=== PATIENT | female | born 1970 | race Caucasian/White ===

== ENCOUNTER → 2020-08-26 08:21 | Outpatient (CLI) | payer BC, SELFPAY ==
[2020-08-25 15:15] VITALS: BMI 30.5
--- NOTE | 2020-08-25 15:45 | FLU_PTH ---
PATIENT: REBECCA CAMPBELL LOC: [facility] #:[id number] AGE/SX: 54/F ROOM: RE08/26/[address]: Dr. Delbert Heaton MD : 1970 BED: DIS: SPEC #: [id number] RECD: 08/26/20 08:04 STATUS: CLEVE SARIKA #: [id number] SHANNAN: 08/25/20 15:[address]: Delbert Heaton DEPT: CYTOLOGY RECD BY: Merced Vines Tissues: A - Thyroid gland, NOS B - Thyroid gland, NOS Procedures: Special Stain Group II Surgery Specimen Level IV Cytospin Fluid HEADER OPERATION: Ultrasound-guided fine needle aspiration of left thyroid PRE-OP DIAGNOSIS: Multiple thyroid nodules E04.2 TISSUE SUBMITTED: A ? Mid pole left thyroid nodule fluid for cytology, B ? Left thyroid slides x10 DIAGNOSIS CYTOLOGY A. Left thyroid mid pole nodule fluid for cytology (cytospin and cell block): Consistent with benign cystic colloid nodule. Adequate for evaluation. See cytology study and comment. B. Left thyroid nodule, ultrasound-guided FNA (smears): Consistent with benign follicular nodule with extensive cystic changes. Adequate for evaluation. See comment. MARSHALL:jose 08/27/2020 COMMENT Correlation with clinical, radiologic findings and appropriate follow up are necessary. CYTOLOGY STUDY Slides are reviewed. A. The specimen predominantly consists of macrophages, small amount of colloid and a few benign follicular cells. Only a few clusters of follicular cells are noted meeting the minimal criteria for adequacy for evaluation. CYTOLOGY GROSS A - Received is 0.5 ml of brown cloudy fluid labeled with the patient's name and and designated per the requisition as left thyroid. Submitted for cytology preparation including cell block. B - Received are 10 smears labeled with the patient's name and designated per the requisition as left thyroid. Submitted for staining. / jose 08/26/2020 TC:5 CPT: 50510, 91802, 33354
== END ==
PROVIDERS: Visit Provider Surgery
DX: E04.2 Nontoxic multinodular goiter (principal)
CPT/HCPCS: 88108; 88305; 88313

== ENCOUNTER → 2021-08-11 | Outpatient (CLI) | payer BC, SELFPAY ==
--- NOTE | 2021-08-11 14:19 | US_ITS ---
STUDY: THYROID ULTRASOUND REASON FOR EXAM: Female, 51 years old. thyroid nodules TECHNIQUE: Ultrasound evaluation of the thyroid was performed with real-time and static narvaez-scale imaging. COMPARISON: None. FINDINGS: RIGHT LOBE: The right lobe of the thyroid gland measures 6.2 x 2.8 cm. There is a heterogeneous echotexture. Multiple nodules. Nodule #1 measures 20 x 18 x 9 mm 2. Measures 15 x 15 x 13 mm. Nodule 3. Measures 22 x 19 x 17 mm. There are multiple other nodules.These are cystic and solid appearance. LEFT LOBE: The left lobe of the thyroid gland measures 7.8 x 2.8 cm. There is a heterogeneous echotexture. There are nodules. Multiple nodules. Nodule #1 measures 21 x 17 x 11 mm. Nodule 2 measures 14 x 9 x 18 mm. nodule 3 measures 21 x 20 x 20 mm. There are multiple other nodules. These are cystic and solid appearance. ISTHMUS: The isthmus measures 3 mm. US/Thyroid IMPRESSION: Multinodular bilateral thyroid gland. There are RIGHT nodules. This nodule is mixed cystic and solid, hyperechoic or isoechoic, [id number], smoothly marginated and contains no echogenic foci. TI-RADS points: 2. TI-RADS category: TR2. This nodule is not suspicious and no FNA or follow-up is necessary. There are left nodules. This nodule is mixed cystic and solid, hyperechoic or isoechoic, [id number], smoothly marginated and contains no echogenic foci. TI-RADS points: 2. TI-RADS category: TR2. This nodule is not suspicious and no FNA or follow-up is necessary. Electronically Signed: Edward Jones MD at 15:06 EDT ,
== END | disposition home or self-care (01) ==
LOC: US 14:17
PROVIDERS: PCP Physician Assistant; Referring Provider Surgery; Visit Provider Surgery
DX: E04.2 Nontoxic multinodular goiter (principal)
CPT/HCPCS: 76536

== ENCOUNTER → 2024-05-31 | Outpatient (CLI) | payer OTHER, SELFPAY ==
--- NOTE | 2024-05-31 17:44 | US_ITS ---
PROCEDURE: THYROID 05/31/2024 REASON FOR EXAM: THYROID NODULES Nodules seen on prior exam of August 11, 2021 TECHNIQUE: Real-time ultrasound evaluation of the thyroid was performed with real-time and static grayscale imaging COMPARISON: Ultrasound thyroid 08/11/2021 PROCEDURE: Right thyroid ultrasound. Previous imaging was reviewed. FINDINGS: The thyroid gland, right lobe, measures 6.0 cm length by 2.7 cm height by 2 point 9 cm wide. The left lobe of the gland measures 6.0 cm by 2.8 cm height by 2.4 cm width. The isthmus is mildly thickened at 4.6 mm. A right thyroid nodule is identified measuring 2.7 cm by 2 point 1 cm height. A right lobe nodule is identified measuring 3.1 cm L x 2.2 cm x 1.8 cm W. the nodule is almost completely solid (2), isoechoic (1), wider than tall (0). Is also smoothly marginated with no echogenic foci (0). A left thyroid nodule is identified measuring 3.1 cm x 2.2 cm x 1.8 cm. Few small cystic areas are seen, but the nodule is predominantly solid (2 points), isoechoic (1), wider than tall (0), smoothly marginated (0) and no echogenic foci (0). The nodule is TR 3, mildly suspicious. FNA biopsy is recommended for all TR 3 nodules greater than or equal to 2.5 cm diameter (maximum diameter). Also in the left lobe is a 2.1 by 1 point 2 x 1.6 cm nodule which is mixed cystic and solid (1 point), isoechoic (1), wider than tall (0), smooth margins (0), no echogenic foci (0). TR 2, not suspicious. A left lobe nodule measures 0.9 cm x 1.2 cm 1.0 cm and is predominantly cystic (0), anechoic (0), wider than tall (0), smoothly marginated (0) and no echogenic foci (0). A right lobe nodule is partly solid and mostly cystic measuring 2.7 cm by 2.1 cm height by 2.8 cm width. Margins appear smooth. Portions of the nodule appear spongiform. The nodules predominantly anechoic, wider than tall, smooth margination and no echogenic foci, total of 0 points, TR 1 benign. Another nodule identified in the right lobe is 2.3 cm L by 1.4 cm height by 1.6 cm with. Composition is spongiform. 0 points, TR 1. Another right lobe nodule is small measuring 1.3 cm by 0.8 cm height by 1.1 cm with. This nodule is either T1 benign or T2 not suspicious. US/Thyroid IMPRESSION: Multinodular goiter. A right lobe nodule is identified measuring 3.1 cm L x 2.2 cm x 1.8 cm W. the n odule is almost completely solid (2), isoechoic (1), wider than tall (0). Is also smoothly marginated with no echogenic foci ( 0). A left lobe nodule measures 2.7 x 2.8 x 2.1 cm. This represents an increase co mpared to the prior study measure 2.2 x 1.9 x 1.7 cm. The nodule is TR 3, mildly suspicious and has 1 dimension equal to or grea ter than 2.5 cm for which FNA biopsy is recommended. [facility]
== END | disposition home or self-care (01) ==
LOC: US 17:42
PROVIDERS: PCP Physician Assistant; Referring Provider Physician Assistant; Visit Provider Physician Assistant
DX: E04.1 Nontoxic single thyroid nodule (principal)
CPT/HCPCS: 76536

== ENCOUNTER 2024-12-06 20:45 | Observation (INO) | payer OTHER, SELFPAY ==
--- NOTE | 2024-12-06 20:44 | ECHOD_ITS ---
Reason For Study Reason For Study: DYSPNEA Procedure This was a 2D Doppler, Color Flow transthoracic echocardiogram. Exam performed portable in patient room. Left Ventricle Normal LV size. The estimated ejection fraction is 65 %. No evidence for diastolic dysfunction. No regional wall motion abnormalities noted. Right Ventricle Normal RV size. Normal systolic function. Atria The left and right atria are normal. No doppler evidence for ASD. Mitral Valve There is no mitral valve stenosis. Trivial mitral valve insufficiency. Tricuspid Valve There is no tricuspid stenosis. Trivial tricuspid valve insufficiency. Unable to estimate RV systolic pressure due to insufficient tricuspid regurgitant envelope. Aortic Valve Trisinus/trileaflet aortic valve. There is no aortic stenosis. Trivial aortic valve insufficiency. Pulmonic Valve There is no pulmonic valvular stenosis. No pulmonic valve insufficiency. Great Vessels Normal sized aortic root. Pericardium/Pleural No pericardial effusion. MMode/2D Measurements & Calculations LVIDd: 4.2 cm IVSd: 1.4 cm LVOT diam: 2.0 cm LVIDs: 3.0 cm LVPWd: 1.5 cm LVOT area: 3.1 cm2 RVDd: 3.4 cm FS: 30.4 % LAV(MOD-bp): 51.1 ml LVAd ap4: 27.3 cm2 SV(MOD-sp4): 53.7 ml LAV(MOD-bp) Indexed: 24.9 ml/m2 LVLd ap4: 8.1 cm SI(MOD-sp4): 26.2 ml/m2 LAV(MOD-sp2): 43.4 ml EDV(MOD-sp4): 76.1 ml LAV(MOD-sp4): 60.8 ml EDV(sp4-el): 77.9 ml LVAs ap4: 12.8 cm2 LVLs ap4: 6.8 cm ESV(MOD-sp4): 22.4 ml ESV(sp4-el): 20.5 ml EF(MOD-sp4): 70.6 % EF(sp4-el): 73.7 % SV(sp4-el): 57.4 ml LA A4 area: 20.1 cm2 LA dimension(2D): 4.0 cm RA A4 area: 14.6 cm2 Time Measurements MV dec time: 0.24 sec Doppler Measurements & Calculations MV E max herminio: 84.7 cm/sec Lat Peak E' Herminio: 9.6 cm/sec Med Peak E' Herminio: 8.5 cm/sec MV A max herminio: 93.8 cm/sec E/E' lat: 8.8 E/E' med: 10.0 MV E/A: 0.90 MV V2 max: 95.4 cm/sec Ao V2 max: 150.9 cm/sec MV max P.6 mmHg MV dec slope: 359.5 cm/sec2 Ao max P.1 mmHg MV V2 mean: 61.6 cm/sec Ao V2 mean: 104.3 cm/sec MV mean P.7 mmHg Ao mean P.0 mmHg MV V2 VTI: 35.6 cm Ao V2 VTI: 36.5 cm AV (velocity ratio): 0.93 MVA(VTI): 2.9 cm2 YUDITH(I,D): 2.8 cm2 YUDITH(V,D): 2.9 cm2 LV V1 max: 144.0 cm/sec SV(LVOT): 103.6 ml PA V2 max: 102.7 cm/sec LV V1 max P.3 mmHg PA V2 mean: 78.3 cm/sec LV V1 mean P.6 mmHg LV V1 mean: 101.4 cm/sec LV V1 VTI: 33.9 cm ECHO/Echo Complete Interpretation Summary The estimated ejection fraction is 65 %. No evidence for diastolic dysfunction. Trivial mitral valve insufficiency. Trivial aortic valve insufficiency. Ordering Physician: Mera Jolly Referring Physician: ALVIN POLLARD Performed By: Nia Denton RCS
--- NOTE | 2024-12-06 20:44 | EKG12_ITS ---
Test Reason : CP ADMIT Blood Pressure : */* mmHG Vent. Rate : 61 BPM Atrial Rate : 61 BPM P-R Int : 200 ms QRS Dur : 98 ms QT Int : 434 ms P-R-T Axes : 59 17 2 degrees QTcB Int : 436 ms Normal sinus rhythm Normal ECG No previous ECGs available Confirmed by ANDREA PRATT MD ([id number]), videotape editor IRISH AZUL ([id number]) on 12/09/2024 8:44:40 AM Referred By: SHAKIR Confirmed By: ANDREA PRATT MD
--- OUTSIDE RECORDS SUMMARY | 2024-12-06 23:16 | XMS RPT_ITS | CCD ---
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 Name Role Phone ALVIN LÓPEZ Admitting Unavailable ALVIN LÓPEZ Attending Unavailable ALVIN LÓPEZ Primary Care Unavailable ALVIN LÓPEZ Consulting Unavailable PROVIDER, UNKNOWN Consulting Unavailable ALVIN LÓPEZ Admitting Unavailable ALVIN LÓPEZ Attending Unavailable ALVIN LÓPEZ Primary Care Unavailable ALVIN LÓPEZ Consulting Unavailable PROVIDER, UNKNOWN Consulting Unavailable Alvin López PA-C Unavailable Alvin López PA-C Unavailable General Surgery Provider Unavailable Unavail able Natalia ADJUSTER LEADER, Delia Unavailable Unavailabl e Steven ADJUSTER LEADER, Cher Valenzuela Unavailable Unavailable Shadi ADJUSTER LEADER, Alejandra Unavailable Unavailable King TAL-C, Vlad Rudolph Unavailable Jaylin ADJUSTER LEADER, Brigitte Kinsey Unavailable Unavailab yuly Noel ADJUSTER LEADER, Reba Unavailable Unavailab yuly Richardson ADJUSTER LEADER, Joy Unavailable Unavailabl e Unavailable Unavailable Jace Urban PA-C Unavailable Alvin Silva Primary Care Provider Alvin Silva Attending Provider Alvin Silva Referring Provider [facility] Unavailable Alvni Silva Referring Unavailable Jasper Ramon Attending Unavailable Alvin Silva Primary Care Unavailable Alvin Silva Referring Unavailable Alvin Silva Primary Care Unavailable Alvin Silva Attending Unavailable Medications Current Medications Medication Drug Class(es) Dates Sig (Normalized) Sig (Original) amLODIPine 5 mg oral tablet (20 sources) Dihydropyridine Calcium Channel Flaco Start: 10-31-2024 amLODIPine 5 mg tablet ; 1 Tablet daily for 0 days Quantity: 90 {Tablet} Refills: 0 Ordered: 31-Oct-2024 RYANNE López Start: 31-Oct-2024 Start: 08-05-2024 amLODIPine 5 m g tablet ; 1 Tablet daily for 0 days Quantity: 90 {Tablet} Refills: 0 Ordered: 05-Aug-2024 RYANNE López Start: 05-Aug-2024 Start: 05-21-2024 amLODIPine 5 m g tablet ; 1 Tablet daily for 0 days Quantity: 90 {Tablet} Refills: 0 Ordered: 21-May-2024 RYANNE López Start: 21-May-2024 Start: 05-10-2024 amLODIPine 5 m g tablet ; 1 Tablet daily for 0 days Quantity: 90 {Tablet} Refills: 0 Ordered: 10-May-2024 RYANNE López Start: 10-May-2024 Start: 02-12-2024 amLODIPine 5 m g tablet ; 1 Tablet daily for 0 days Quantity: 90 {Tablet} Refills: 0 Ordered: 12-Feb-2024 RYANNE López Start: 12-Feb-2024 Start: 11-14-2023 amLODIPine 5 m g tablet ; 1 Tablet daily for 0 days Quantity: 90 {Tablet} Refills: 0 Ordered: 14-Nov-2023 RYANNE López Start: 14-Nov-2023 Start: 08-18-2023 amLODIPine 5 m g tablet ; 1 Tablet daily for 0 days Quantity: 90 {Tablet} Refills: 0 Ordered: 18-Aug-2023 RYANNE López Start: 18-Aug-2023 Start: 05-22-2023 amLODIPine 5 m g tablet ; 1 Tablet daily for 0 days Quantity: 90 {Tablet} Refills: 0 Ordered: 22-May-2023 RYANNE López Start: 22-May-2023 Start: 02-15-2023 amLODIPine 5 m g tablet ; 1 Tablet daily for 0 days Quantity: 90 {Tablet} Refills: 0 Ordered: 15-Feb-2023 RYANNE López Start: 15-Feb-2023 hydroCHLOROthiazide 25 mg oral tablet (1 source) Thiazide Diuretic Start: 10-31-2024 hydroCHLOROthiazide 25 mg tablet ; 1 (one) tablet daily for 0 days Quantity: 30 {Tablet} Refills: 1 Ordered: 31-Oct-2024 RYANNE López Start: 31-Oct-2024 Start: 10-31-2024 hydroCHLOROthi azide 25 mg tablet ; 1 (one) tablet daily for 0 days Quantity: 30 {Tablet} Refills: 1 Ordered: 31-Oct-2024 RYANNE López Start: 31-Oct-2024 lisinopril 40 mg oral tablet (20 sources) Angiotensin Converting Enzyme Inhibitor Start: 10-31-2024 lisinopriL 40 mg tablet ; 1 (one) Tablet daily for 0 days Quantity: 90 {Tablet} Refills: 0 Ordered: 31-Oct-2024 RYANNE López Start: 31-Oct-2024 Start: 08-05-2024 lisinopriL 40 mg tablet ; 1 (one) Tablet daily for 0 days Quantity: 90 {Tablet} Refills: 0 Ordered: 05-Aug-2024 RYANNE López Start: 05-Aug-2024 Start: 05-21-2024 lisinopriL 40 mg tablet ; 1 (one) Tablet daily for 0 days Quantity: 90 {Tablet} Refills: 0 Ordered: 21-May-2024 RYANNE López Start: 21-May-2024 Start: 05-10-2024 lisinopriL 40 mg tablet ; 1 (one) Tablet daily for 0 days Quantity: 90 {Tablet} Refills: 0 Ordered: 10-May-2024 RYANNE López Start: 10-May-2024 Start: 02-12-2024 lisinopriL 40 mg tablet ; 1 (one) Tablet daily for 0 days Quantity: 90 {Tablet} Refills: 0 Ordered: 12-Feb-2024 RYANNE López Start: 12-Feb-2024 Start: 11-14-2023 lisinopriL 40 mg tablet ; 1 (one) Tablet daily for 0 days Quantity: 90 {Tablet} Refills: 0 Ordered: 14-Nov-2023 RYANNE López Start: 14-Nov-2023 Start: 08-18-2023 lisinopriL 40 mg tablet ; 1 (one) Tablet daily for 0 days Quantity: 90 {Tablet} Refills: 0 Ordered: 18-Aug-2023 RYANNE López Start: 18-Aug-2023 Start: 05-22-2023 lisinopriL 40 mg tablet ; 1 (one) Tablet daily for 0 days Quantity: 90 {Tablet} Refills: 0 Ordered: 22-May-2023 RYANNE López Start: 22-May-2023 Start: 02-15-2023 lisinopriL 40 mg tablet ; 1 (one) Tablet daily for 0 days Quantity: 90 {Tablet} Refills: 0 Ordered: 15-Feb-2023 RYANNE López Start: 15-Feb-2023 Start: 01-06-2020 take 1 tablet by gissell th once daily Lisinopril 20 MG Oral Tablet ; 1 (one) daily (20 MG) Start: 06-Jan-2020 Status: Inactive Start: 03-11-2019 End: 07-26-2019 take 1 tablet by mouth once daily Lisinopril 5 MG Oral Tablet ; 1 (one) Tablet daily for 90 days Quantity: 90 {Tablet} Refills: 1 Ordered: 26-Jul-2019 RYANNE López Start: 11-Mar-2019 End: 26-Jul-2019 Status: Inactive Comments: Mail order. Start: 04-26-2017 take 1.5 tablets by mouth once daily Lisinopril 10 MG Oral Tablet ; 1.5 daily (10 MG) Start: 26-Apr-2017 Status: Inactive Comment on above: Mail order. Completed/Discontinued Medications Medication Drug Class(es) Dates Sig (Normalized) Sig (Original) amoxicillin 875 mg / clavulanate 125 mg oral tablet (20 sources) Penicillin-class Antibacterial Start: 01-18-2016 End: 01-28-2016 take 1 tablet by mouth twice daily at mealtime Augmentin 875-125 MG Oral Tablet ; 1 Tab two times daily for 10 days Quantity: 20 {Tablet} Refills: 0 Ordered: 18-Jan-2016 MARA Mondragon Start: 18-Jan-2016 End: 28-Jan-2016 Status: Inactive Comments: Take with food Comment on above: Take with food cephalexin 500 mg oral tablet (20 sources) Cephalosporin Antibacterial Start: 07-26-2019 End: 08-02-2019 take 1 tablet by mouth three times daily Cephalexin 500 MG Oral Tablet ; 1 (one) Tablet TID for 7 days Quantity: 21 {Tablet} Refills: 0 Ordered: 26-Jul-2019 RYANNE López Start: 26-Jul-2019 End: 02-Aug-2019 Status: Inactive fluticasone propionate 0.05 mg/actuat metered dose nasal spray (20 sources) Corticosteroid Start: 01-18-2016 End: 02-17-2016 take 2 spray(s) nasal route once daily Fluticasone Propionate 50 MCG/ACT Nasal Suspension ; 2 (two) sprays each nostril daily for 30 days Quantity: 1 {Bottle} Refills: 0 Ordered: 18-Jan-2016 MARA Mondragon Start: 18-Jan-2016 End: 17-Feb-2016 Status: Inactive omeprazole 20 mg delayed release oral capsule (20 sources) Proton Pump Inhibitor Start: 07-20-2015 End: 01-18-2016 Omeprazole 20 MG Oral Capsule Delayed Release ; 1 (one) Capsule DR 30 minutes before first meal of the day for 0 days Quantity: 30 {Capsule} Refills: 0 Ordered: 18-Jan-2016 Start: 20-Jul-2015 End: 18-Jan-2016 Status: Inactive Problems Active Problems Problem Classification Problem Date Documented Date Episodic/Chronic Essential hypertension (20 sources) Hypertensive disorder; Translations: [Essential (primary) hypertension] 06-30-2022 Chronic Heart valve disorders (20 sources) Aortic valve sclerosis; Translations: [Other nonrheumatic aortic valve disorders] 06-30-2022 Chronic Heart valve disorders (20 sources) Heart murmur; Translations: [Cardiac murmur, unspecified] 06-30-2022 Episodic Nausea and vomiting (20 sources) Nausea; Translations: [Nausea] 07-22-2016 Episodic Nonmalignant breast conditions (20 sources) Mammographic breast tissue appearance; Translations: [Other (abnormal) findings on radiological examination of breast] 04-05-2023 Episodic Other connective tissue disease (10 sources) Muscle spasm of cervical muscle of neck; Translations: [Other muscle spasm] 09-20-2024 Episodic Other liver diseases (20 sources) Elevated total bilirubin; Translations: [Unspecified jaundice] 04-05-2018 Episodic Other nutritional; endocrine; and metabolic disorders (20 sources) Body mass index 30+ - obesity; Translations: [Body mass index (BMI) 30.0-30.9, adult] 04-05-2018 Chronic Other nutritional; endocrine; and metabolic disorders (20 sources) Hyperbilirubinemia; Translations: [Other disorders of bilirubin metabolism] 06-30-2022 Chronic Other nutritional; endocrine; and metabolic disorders (20 sources) Obesity; Translations: [Obesity, unspecified] 06-30-2022 Chronic Other screening for suspected conditions (not mental disorders or infectious disease) (20 sources) Mammography abnormal; Translations: [Other abnormal and inconclusive findings on diagnostic imaging of breast] 06-30-2022 Episodic Other skin disorders (20 sources) Infection of sebaceous cyst; Translations: [Sebaceous cyst] 06-30-2022 Episodic Other upper respiratory infections (20 sources) Sinusitis; Translations: [Chronic sinusitis, unspecified] 07-22-2016 Chronic Residual codes; unclassified (20 sources) FH: Thyroid disorder; Translations: [Family history of other endocrine, nutritional and metabolic diseases] 06-30-2022 Episodic Residual codes; unclassified (20 sources) Influenza vaccination declined; Translations: [Immunization not carried out because of patient refusal] 04-05-2018 Episodic Thyroid disorders (20 sources) Multinodular goiter; Translations: [Nontoxic multinodular goiter] Onset: 06-04-2024 06-30-2022 Chronic Unclassified (2 sources) Clinical finding absent; Translations: [No significant past surgical history] 08-25-2020 Unclassified (20 sources) Number of Pregnancies 08-05-2021 Comment on above: 0. Unclassified (1 source) Follow up for multiple chronic conditions - The patient is here for follow-up of hypertension and obesity. 04-05-2023 Unclassified (20 sources) Follow up for chronic condition - The patient is here for follow-up of hypertension. The patient always takes the prescribed medications. No side effects noted. The patient has an active lifestyle but no regular exercise program. The patient's out of office blood pressure checks occur frequently. The patient states that there is no recent angina or dyspnea, weight has increased and they do not have headaches. The patient states that the disease has no overall impact. Note for Chronic condition follow-up: Home BP readings are 142/74, 151/80, 145/82, 150/88, 145/82, 145/77, and 142/74 - these are not after sitting for a little while.LMP was in March 2022 - taking a natural product to help with the hot flashes. 06-30-2022 Unclassified (4 sources) Transition into care - The patient is transitioning into care from a hospital and a summary of care was reviewed. 07-28-2021 Unclassified (4 sources) [ADDITIONAL REASON] Follow up from hospital stay - Name of Hospital: [facility]. Date of Admission: 07/21/2021. Date of Discharge: 07/22/2021. The patient was hospitalized for High bp. New medications include Amlodipine 10mg. Consultations ordered while in the hospital include cardiology (no outpatient f/u indicated). Patient was discharged to home. Note for Follow up from hospital stay: Pt has no symptoms now. BP readings having remained in 140s-150s/90s. 07-28-2021 Unclassified (20 sources) Well adult female - The patient feels well with minor complaints (bp has been high), has good energy level and is sleeping well. The first day of the last menstrual period was : (07/18/2020). The patient is not using any method of contraception at this time. The patient has a balanced diet and takes no supplemental vitamins & iron. The patient exercises none (very active at work). The patient sleeps 6 hours per night. Note for Well adult female: Home Bps have been running high over the past 6 weeks; 148/84 was lowest; average 156-158/84-86; highest was 168/96. 07-22-2020 Unclassified (20 sources) Well adult female - The patient feels well with minor complaints (she has a cyst on her back on the right side around the area of her bra strap; said she did have her mom squeeze it and some stuff did come out. Feels a little better but would like it checked.), has good energy level and is sleeping well. The first day of the last menstrual period was : (now). The patient has a balanced diet. The patient exercises none (active). The patient sleeps 7 hours per night. 07-26-2019 Unclassified (20 sources) [ADDITIONAL REASON] Follow up for multiple chronic conditions - The patient is here for follow-up of hypertension and other condition(s) (murmur, family h/x of thyroid disease.). The patient always takes the prescribed medications. No side effects noted. The patient has an active lifestyle but no regular exercise program. The patient's out of office blood pressure checks occur occasionally (they have been high.) and dietary compliance is fairly good usually adhering to recommendations. The patient states that breathing effort is stable, there is no recent angina or dyspnea, there are no vision changes or weakness, sleep patterns have improved and they do not have headaches. 07-26-2019 Unclassified (17 sources) Well adult female - The patient feels well with no complaints, has good energy level and is sleeping well. The first day of the last menstrual period was : (mid mar.- states that they are regular.). The patient is not using any method of contraception at this time. The patient has a balanced diet and takes no supplemental vitamins & iron. The patient does not exercise. The patient sleeps 7 hours per night. 04-06-2018 Unclassified (17 sources) [ADDITIONAL REASON] Follow up for multiple chronic conditions - The patient is here for follow-up of hypertension and other condition(s) (murmur.). The patient always takes the prescribed medications. No side effects noted. The patient has an active lifestyle but no regular exercise program. The patient's out of office blood pressure checks occur occasionally and dietary compliance is fairly good usually adhering to recommendations. The patient states that breathing effort is stable, there is no recent angina or dyspnea, sleep patterns have improved and they do not have headaches. Note for Multiple chronic conditions follow-up: Last office visit 02/20/2017. Last eye appointment was last yr and they said they were fine. BPs at home are 130s/70s. 04-06-2018 Unclassified (20 sources) Well adult female - The patient feels well with minor complaints (Has been fighting a cold for 3 days- mccormick, achy all over, prod. cough, facial pain, tight chest. No runny nose, nasal congestion. Taking OTC medication. History of seasonal allergies and sinus infections yearly.), has good energy level and is sleeping well. The first day of the last menstrual period was : (02/08/17 regular, never sexually active). The patient is not using any method of contraception at this time. The patient has a balanced diet and takes no supplemental vitamins & iron. The patient does not exercise. The patient sleeps 7 hours per night. Note for Well adult female: BP readings have been 130s-150/70s-80s. 02-22-2017 Unclassified (20 sources) Follow up for multiple chronic conditions - The patient is here for follow-up of hypertension and other condition(s) (murmur). The patient always takes the prescribed medications. No side effects noted. The patient has an active lifestyle but no regular exercise program. The patient's out of office blood pressure checks occur occasionally and dietary compliance is fairly good usually adhering to recommendations. The patient states that breathing effort is stable, there is no recent angina or dyspnea, there are no vision changes or weakness and they do not have headaches. Note for Multiple chronic conditions follow-up: Eye doctor this past summer and all was good.Has had some popping in her left ear and occasional spinning sensation x few days. 02-10-2017 Unclassified (20 sources) Follow up for chronic condition - The patient is here for follow-up of hypertension. The patient always takes the prescribed medications. No side effects noted. The patient's out of office blood pressure checks occur occasionally (has readings with her - see attached document; 146/77, 152/96, 141/88, 162/79, 145/77) and dietary compliance is fairly good usually adhering to recommendations. The patient states that breathing effort is stable, there is no recent angina or dyspnea, there are no vision changes or weakness and they do not have headaches. Note for Chronic condition follow-up: eye appointment todayWeight is down 13 pounds.Has been taking an allergy medication recently - effective. 07-22-2016 Unclassified (20 sources) Follow Up for Multiple Chronic Conditions - The patient is here for follow-up of hypertension and other condition(s) (Murmur and elevated total bilirubin.). The patient always takes the prescribed medications. No side effects noted. The patient has an active lifestyle but no regular exercise program. The patient's out of office blood pressure checks occur occasionally (136/77, 122/60, 142/72, 136/79). The patient states that there is no recent angina or dyspnea, there are no vision changes or weakness, weight has decreased (Down 2# from last visit.) and they do not have headaches. The patient states that the disease has no overall impact. Note for Multiple chronic conditions follow-up: Pt states that in the mornings she will wake up and be nauseated. No vomiting. This has been x months. Has tried natural meds without improvement. Denies heartburn but does wake up with a bad taste in her mouth. Gas pains at time; sometimes salads bother her. No diarrhea. No abd pain. Nausea is worse when her stomach is empty. Pt has not had any yellowing of skin or eyes. 07-26-2015 Unclassified (20 sources) Follow Up for Multiple Chronic Conditions - The patient is here for follow-up of hypertension (Pt was seen 12/19/14 for HTN and started on Lisinopril 5 mg daily. Labs done and ready to review.). The patient always takes the prescribed medications. No side effects noted. The patient has an active lifestyle but no regular exercise program (and also does bike). The patient's out of office blood pressure checks occur frequently (Average BP in the morning is 135-142/70's and in afternoon BP 127-132/68-75. Pt had list but forgot to bring it with her (did call for some readings while in the room waiting for patient).). The patient states that there are no vision changes or weakness, pain has improved, weight has decreased (Down 5# from last visit.) and they do not have headaches. The patient states that the disease has no overall impact. 01-21-2015 Unclassified (20 sources) Follow up for multiple chronic conditions - The patient is here for follow-up of hypertension and obesity. The patient always takes the prescribed medications. No side effects noted. The patient has an active lifestyle but no regular exercise program. The patient's out of office blood pressure checks occur frequently. The patient states that there is no recent angina or dyspnea, weight has decreased and they do not have headaches. The patient states that the disease has no overall impact. 04-05-2023 Unclassified (20 sources) Follow up from hospital stay - Name of Hospital: [facility]. Date of Admission: 07/21/2021. Date of Discharge: 07/22/2021. The patient was hospitalized for High bp. New medications include Amlodipine 10mg. Consultations ordered while in the hospital include cardiology (no outpatient f/u indicated). Patient was discharged to home. Note for Follow up from hospital stay: Pt has no symptoms now. BP readings having remained in 140s-150s/90s. 07-28-2021 Unclassified (20 sources) [ADDITIONAL REASON] Transition into care - The patient is transitioning into care from a hospital and a summary of care was reviewed. 07-28-2021 Unclassified (8 sources) Follow up for multiple chronic conditions - The patient is here for follow-up of hypertension and other condition(s) (murmur.). The patient always takes the prescribed medications. No side effects noted. The patient has an active lifestyle but no regular exercise program. The patient's out of office blood pressure checks occur occasionally and dietary compliance is fairly good usually adhering to recommendations. The patient states that breathing effort is stable, there is no recent angina or dyspnea, sleep patterns have improved and they do not have headaches. Note for Multiple chronic conditions follow-up: Last office visit 02/20/2017. Last eye appointment was last yr and they said they were fine. BPs at home are 130s/70s. 04-06-2018 Unclassified (8 sources) [ADDITIONAL REASON] Well adult female - The patient feels well with no complaints, has good energy level and is sleeping well. The first day of the last menstrual period was : (mid mar.- states that they are regular.). The patient is not using any method of contraception at this time. The patient has a balanced diet and takes no supplemental vitamins & iron. The patient does not exercise. The patient sleeps 7 hours per night. 04-06-2018 Unclassified (4 sources) Follow up for multiple chronic conditions - The patient is here for follow-up of hypertension and other condition(s) (murmur, family h/x of thyroid disease.). The patient always takes the prescribed medications. No side effects noted. The patient has an active lifestyle but no regular exercise program. The patient's out of office blood pressure checks occur occasionally (they have been high.) and dietary compliance is fairly good usually adhering to recommendations. The patient states that breathing effort is stable, there is no recent angina or dyspnea, there are no vision changes or weakness, sleep patterns have improved and they do not have headaches. 07-26-2019 Unclassified (4 sources) [ADDITIONAL REASON] Well adult female - The patient feels well with minor complaints (she has a cyst on her back on the right side around the area of her bra strap; said she did have her mom squeeze it and some stuff did come out. Feels a little better but would like it checked.), has good energy level and is sleeping well. The first day of the last menstrual period was : (now). The patient has a balanced diet. The patient exercises none (active). The patient sleeps 7 hours per night. 07-26-2019 Unclassified (1 source) Follow up for multiple chronic conditions - The patient is here for follow-up of hypertension and obesity. The patient always takes the prescribed medications. No side effects noted. The patient has an active lifestyle but no regular exercise program. The patient's out of office blood pressure checks occur occasionally. The patient states that there is no recent angina or dyspnea, weight is unchanged and they do not have headaches. The patient states that the disease has no overall impact. Note for Multiple chronic conditions follow-up: Ankles are swollen after working all day, thinks it might be from Amlodipine since it started right after taking that.Home BP readings are 142/79, 148/87, 156/87, 140/80. 10-31-2024 Past or Other Problems Problem Classification Problem Date Documented Date Episodic/Chronic Residual codes; unclassified (2 sources) Past history of procedure; Translations: [Other specified postprocedural states] Onset: 03-06-2020 09-01-2020 Episodic Comment on above: thyroid Unclassified (20 sources) Well adult female - The patient feels well with no complaints, has good energy level (energy has been decreased in the past week) and is sleeping well. The first day of the last menstrual period was : (07/25/2021). The patient has a balanced diet and takes no supplemental vitamins & iron. The patient exercises none (pt does a lot of walking at work and biking). The patient sleeps 7 hours per night. Note for Well adult female: Some leg swelling since starting norvasc. Noticing dizziness with quick movements and after bending over.Home BP readings 134/83, 134/81, 131/82, 131/77, 124/75, 123/73. 08-05-2021 Unclassified (20 sources) Cold Symptoms - Symptoms include sneezing, nasal congestion (a little), runny nose, ear pain (her ears will feel tender at times), scratchy throat, dry cough, wheezing (last night she did as well as chest tightness), fever (woke up drenched in sweat), general malaise (body aches worse yesterday than today) and headache, but do not include sore throat, productive cough or chills. The onset was gradual 5 day(s) ago. The symptoms occur constantly. The patient describes this as moderate in severity and improving ( some). Current treatment includes non-prescription cold medication (Nyquil) and an oral decongestant (Sudafed). Risk factors do not include smoking. The patient has not been exposed to an individual with an upper respiratory infection. Medical history includes seasonal allergies (in the spring time), recurrent sinusitis and recurrent ear infections (Swimmers ear), but patient denies history of asthma or tonsillectomy. 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 Needs a refill on her lisinopril medication today. Reviewed by JPK. 01-18-2016 Unclassified (20 sources) high blood pressure - Patient is here complaining of her blood pressure running high. She has been keeping track of it; hasn't been able to donate blood x 3 months because of her readings. Readings are usually 140s-150s/80s-90s. Significant family history of HTN. Intermittent headaches. Pulling, spasm sensation in chest at times. Daily - questions if could be related to anxiety. No other symptoms. Rides bike regularly. No recent labs. Has done some natural treatment without improvement. 12-19-2014 Unclassified (12 sources) check thyroid - Patient is here to have thyroid checked, per patient her thyroid has felt swollen and hard over the past several days. Patient had been taking a lot of OTC cold medication for a cold and she thinks that is what caused the swelling, swelling has gone down a lot over the weekend but thyroid remains enlarged. Order for thyroid ultrasound was faxed to [facility], patient is to call for scheduling. Patient states she has undergone routine thyroid ultrasounds in the past due to family history of thyroid cancer and personal history of goiter without hormonal change. Patient denies fever, racing heart rate, weight change, heat intolerance, cold intolerance, sore throat, dyspnea, dysphagia, and fatigue. 05-27-2024 Unclassified (5 sources) Neck pain - The onset of the neck pain has been gradual following an incident not at work and has been occurring in a persistent pattern. The course has been gradually worsening. The neck pain is described as a moderate dull aching and tingling. The neck pain is described as being located in the left lateral neck and radiating to the into left shoulder. There have been no relieving factors. Associated features include neck stiffness (this has improved). The neck pain was preceeded by unusual activity (chiropractor adjustment). There have been no previous diagnostic tests. Previous evaluations have been completed by a chiropractor. There has been no previous physical therapy. There has been no previous neck surgery. There has been no use of assistive devices. Previous medications have included anti-inflammatory medication. Note for Neck pain: Patient states she is unsure of what has caused the neck pain but does state there are some factors that could be causing it. Patient states she has been under a lot of pressure lately with sister actively dying; work is strenuous on the neck and shoulders, recently on vacation, recent trip to the chiropractor. Patient states she first noticed neck pain while on vacation therefore she went to the chiropractor but after seeing chiropractor feels as if the pain got worse and now shoots down her arm at times.Left sided chest heaviness and into the arm for approx a week. Started right after adjustment. When on vacation wasn't eating very healthy - had a stiff neck at that time but no significant pain. Was on vacation last week but stiffness of neck has been for approx a month or so.Has been taking aspirin 81mg daily since vacation. No ice/heat application.Chiro is [facility]. Said neck was really tight. Discussed possible massage machine but didn't do it. 09-20-2024 Results Test Name Value Interpretation Reference Range Facility BASIC METABOLIC PANELon 11-04 BUN/CREATININE RATIO SEE NOTE: Normal 08-25 [facility]ues [facility] Comment on above: Result Comment: Not Reported: BUN and Creatinine are within reference range. Performed By: #### 8 99, 866, [id number] #### [facility] of [address], [address] [place] [address] Ramp Service Agent: Chang Nunez MD Calcium [Mass/Vol] 10.2 mg/dL Normal 8.6-10.4 [facility] Comment on above: Performed By: #### 8 99, 866, 20987 #### [facility] of [address], [address] [place] [address] Ramp Service Agent: Chang Nunez MD Chloride [Moles/Vol] 106 mmol/L Normal 98-110 [facility] Comment on above: Performed By: #### 8 99, 866, 25459 #### [facility] of [place] [address] Ramp Service Agent: Chang Nunez MD CO2 [Moles/Vol] 24 mmol/L Normal 20-32 [facility] Comment on above: Performed By: #### 8 99, 866, 08406 #### [facility] [place] [address] Ramp Service Agent: Chang Nunez MD Creatinine [Mass/Vol] 0.73 mg/dL Normal 0.50-1.03 [facility] Comment on above: Performed By: #### 8 99, 866, 89838 #### [facility] [place] [address] Ramp Service Agent: Chang Nunez MD GFR/1.73 sq M.predicted among non-blacks MDRD (S/P/Bld) [Vol rate/Area] 97 mL/min/{1.73_m2} Normal > OR = 60 [facility] Comment on above: Performed By: #### 8 99, 866, 82289 #### [facility] [place] [address] Ramp Service Agent: Chang Nunez MD Glucose [Mass/Vol] 98 mg/dL Normal 65-99 [facility] Comment on above: Result Comment: Fasting reference interval Performed By: #### 8 99, 866, 79451 #### [facility] of [address] [place] [address] Ramp Service Agent: Chang Nunez MD Potassium [Moles/Vol] 3.6 mmol/L Normal 3.5-5.3 [facility] Comment on above: Performed By: #### 8 99, 866, 21966 #### [facility] [place] [address] Ramp Service Agent: Chang Nuenz MD Sodium [Moles/Vol] 140 mmol/L Normal 135-146 [facility] Comment on above: Performed By: #### 8 99, 866, 85136 #### [facility] [place] [address] Ramp Service Agent: Chang Nunez MD Urea nitrogen [Mass/Vol] 21 mg/dL Normal 7-25 [facility] Comment on above: Performed By: #### 8 99, 866, 26730 #### [facility] [place] [address] Ramp Service Agent: Chnag Nunez MD T4, FREEon 11-19-2024 Free T4 [Mass/Vol] 1.2 ng/dL Normal 0.8-1.8 [facility] Comment on above: Performed By: #### 8 99, 866, 20312 #### [facility] [place] [address] Ramp Service Agent: Chang Nunez MD TSHon 11-19-2024 TSH Qn 0.16 m[IU]/L Low [facility] Comment on above: Result Comment: Refe rence Range > or = 20 Years 0.40-4.50 Ranges First trimester 0.26-2.66 Second trimester 0.55-2.73 Third trimester 0.43-2.91 Performed By: #### 8 99, 866, 46434 #### [facility] [place] [address] Ramp Service Agent: Chang Nunez MD Surgery Visit Reporton 07-04 Surgery Visit Report [facility] [address] [place] [address] OFFICE VISIT Date of Service: 07/04/24 MR#: [id number] Acct: [id number] Name: REBECCA CAMPBELL Rep #: [id number] : 1970 Provider: Dr. Jasper willis MD Age/Sex: 53/F Location: [facility] Status: Signed Intake Vital Signs 08/25/20 15:15 07/04/24 12:37 Height 5 ft 7 in 5 ft 7 in Weight: 211 lb 8 oz BMI 33.1 BP 133/83 H Blood Pressure Location Rt brachial Position Sitting Respiration 18 Pulse 74 Pulse Source Monitor Temp 97.6 F L Temp Source Temporal Pulse Oximetry (%) 97 Oxygen Delivery Method room air Intake Visit Reasons: THYROID NODULE Chief Complaint: thyroid nodule Is patient in pain?: No Allergies No Known Allergies Allergy (Verified 07/04/24 12:38) Medications ???Medication ???Instructions ???Recorded ???Confirmed ???Type lisinopril 20 mg tablet 20 mg PO DAILY 08/25/20 07/04/24 H istory amlodipine 5 mg tablet 5 mg PO QDAY 07/04/24 07/04/24 His tory PFSH Medical History Multiple thyroid nodules Hypertension Heart murmur Surgical History S/P fine needle aspiration ( 08/2020) No significant past surgical history Family History Sister Thyroid disorder Hypertension Heart disease Myocardial infarction HPI HPI HPI: Patient is a 53-year-old female who presents for evaluation of bilateral thyroid nodularity. They are referred for surgical consultation from DAYSI Aguilera. Patient previously was established with Dr. Delbert Heaton and even underwent biopsy of the left mid polar nodule in 2021 with a FNA diagnosis of a Perry 2 lesion. Patient shares that her nodules were first discovered after her primary care provider identified that her thyroid was too thick and she had just received news that her sister was found to have metastatic thyroid cancer to the leg (through review of the EMR this is metastatic follicular thyroid carcinoma). Patient shares that approximately a month ago she felt ill with a cold and was taking NyQuil and Maci-Hume ckdl-jee-njyabqv medications to manage her symptoms. It was at that time she felt her thyroid become thick and swollen. Reading that some of the iwbz-aux-hkdyvho medications can affect the thyroid she immediately ceased their use. She now confirms that her thyroid is back to normal. Outside the above patient notes lots of problems with allergies she states that she is currently struggling exceptionally with these symptoms. She states some relief with taking Flonase on a regular basis. They do not experience difficulty with swallowing. They do not complain of a new cough. They do appreciate new voice changes with hoarseness that has been attributed to springtime allergies. They do not have a history of snoring/sleep apnea. Additionally, their weight has been stable and they do not have a history of weight gain/loss or an inability to lose despite intentional effort. There is no history of recent fatigue. They do not have a history of heat or cold intolerance. Other symptoms include: Pertinent positives: Some palpitations (patient acknowledges a history of a heart murmur and states this is nonprogressive), and some increased sweating (patient notes that she is perimenopausal and had attributed to this reason). They do have a family history of thyroid disorders as indicated above but also she reports that she has at least 2 histories that require thyroid hormone medication. When pressed about the indication for this medication she states she believes it is due to overactive thyroid. She relates that she has 7 sisters so she does not have all the details clear. Previous work-up has included thyroid ultrasound. This study was performed on 05/31/2024 and showed a right thyroid lobe measuring 6.0 x 2.9 x 2.7 cm. Within this lobe radiology identified a number of nodules measuring at greatest size 2.8 x 2.7 x 2.1 cm. A second large 2.3 cm nodule was identified as a clear TI-RADS 1 lesion. Lastly radiology reported the presence of a 1.3 cm TI-RADS 3 nodule. The left thyroid lobe measured 6.0 x 2.8 x 2.4 cm. Unfortunately the narrative and impression of the report are difficult to follow and seem to be at odds with 1 another but after review of the original imaging there appears to be a 3.1 cm TI-RADS 3 nodule as well as a 1.2 cm TI- RADS 1 nodule in the superior aspect of the lobe and a 2.1 cm TI-RADS 2 nodule in the inferior aspect of the lobe. An FNA has not been performed but appears to be recommended for patient's 2.8 cm right sided nodule and 3.1 cm left-sided nodule. Other tests i (more content not included)... Normal [facility] Thyroidon 05-31-2024 Thyroid [facility] Imaging Services [address] [place] [address] Thyroid MR#: [id number] Acct: [id number] Name: REBECCA CAMPBELL Rep #: [id number] : 1970 F 53 From: Kevin Soria DO PCP: DAYSI Caldwell Status: DEP CLI Study: Thyroid Date of Exam: 05/31/24 Exam# [id number] Ordering Dr: Alvin López ADDENDUM by Dr. Kevin Soria DO on 08/21/24 at 1228 Original findings section stated that: The thyroid gland, right lobe, measures 6.0 cm length by 2.7 cm height by 2 point 9 cm wide. This finding should have stated that the right lobe of the gland measures 6.0 cm L by 2.7 cm AP by 2.9 cm T. The TI-RADS classification system is based on maximum dimension. Right nodule 1 measures 2.2 cm maximum length. Nodule is spongiform. TR 0. Benign. Right nodule 2 maximum dimension of 2.04 cm. Nodule is spongiform with moderate size cystic component. TR 0: Benign Right nodule 3 maximum diameter is 1.47 cm. The nodule appears spongiform. TR 0: Benign Left thyroid nodule 1 maximum dimension is 2.14 cm. TR 2: Not suspicious Left nodule 2 maximum dimension 2.14 cm.. TR 2: Not suspicious Left nodule 3 maximum dimension is 1.37 cm. TR 2: Not suspicious. Impression Multinodular thyroid gland. All 6 identified nodules are either benign or suspicious base ACR TI- RADS scoring system. Reading Location: [facility] 08/21/24 1229 Date cc: DAYSI Caldwell * Signed PROCEDURE: THYROID 05/31/2024 REASON FOR EXAM: THYROID NODULES Nodules seen on prior exam of August 11, 2021 TECHNIQUE: Real-time ultrasound evaluation of the thyroid was performed with real-time and static grayscale imaging COMPARISON: Ultrasound thyroid 08/11/2021 PROCEDURE: Right thyroid ultrasound. Previous imaging was reviewed. FINDINGS: The thyroid gland, right lobe, measures 6.0 cm length by 2.7 cm height by 2 point 9 cm wide. The left lobe of the gland measures 6.0 cm by 2.8 cm height by 2.4 cm width. The isthmus is mildly thickened at 4.6 mm. A right thyroid nodule is identified measuring 2.7 cm by 2 point 1 cm height. A right lobe nodule is identified measuring 3.1 cm L x 2.2 cm x 1.8 cm W. the nodule is almost completely solid (2), isoechoic (1), wider than tall (0). Is also smoothly marginated with no echogenic foci (0). A left thyroid nodule is identified measuring 3.1 cm x 2.2 cm x 1.8 cm. Few small cystic areas are seen, but the nodule is predominantly solid (2 points), isoechoic (1), wider than tall (0), smoothly marginated (0) and no echogenic foci (0). The nodule is TR 3, mildly suspicious. FNA biopsy is recommended for all TR 3 nodules greater than or equal to 2.5 cm diameter (maximum diameter). Also in the left lobe is a 2.1 by 1 point 2 x 1.6 cm nodule which is mixed cystic and solid (1 point), isoechoic (1), wider than tall (0), smooth margins (0), no echogenic foci (0). TR 2, not suspicious. A left lobe nodule measures 0.9 cm x 1.2 cm 1.0 cm and is predominantly cystic (0), anechoic (0), wider than tall (0), smoothly marginated (0) and no echogenic foci (0). A right lobe nodule is partly solid and mostly cystic measuring 2.7 cm by 2.1 cm height by 2.8 cm width. Margins appear smooth. Portions of the nodule appear spongiform. The nodules predominantly anechoic, wider than tall, smooth margination and no echogenic foci, total of 0 points, TR 1 benign. Another nodule identified in the right lobe is 2.3 cm L by 1.4 cm height by 1.6 cm with. Composition is spongiform. 0 points, TR 1. Another right lobe nodule is small measuring 1.3 cm by 0.8 cm height by 1.1 cm with. This nodule is either T1 benign or T2 not suspicious. US/Thyroid IMPRESSION: Multinodular goiter. A right lobe nodule is identified measuring 3.1 cm L x 2.2 cm x 1.8 cm W. the nodule is almost completely solid (2), isoechoic (1), wider than tall (0). Is also smoothly marginated with no echogenic foci (0). A left lobe nodule measures 2.7 x 2.8 x 2.1 cm. This represents an increase compared to the prior study measure 2.2 x 1.9 x 1.7 cm. The nodule is TR 3, mildly suspicious and has 1 dimension equal to or greater than 2.5 cm for which FNA biopsy is recommended. Reading Location[facility] CC: DAYSI Caldwell Chronometer Tester: Signed Normal [facility] BASIC METABOLIC PANELon 05-05 BUN/CREATININE RATIO SEE NOTE: Normal - Ques t [facility] Comment on above: Result Comment: Not Reported: BUN and Creatinine are within reference range. Performed By: #### 6 399, 35047, 866, 899, 859 #### [facility] [address], [address] [place] [id number] Ramp Service Agent: Chang Nunez MD Calcium [Mass/Vol] 10.5 mg/dL High 8.6-10.4 [facility] Comment on above: Performed By: #### 6 399, 72401, 866, 899, 859 #### [facility] [address], [address] [place] [phone] Ramp Service Agent: Chang Nunez MD Chloride [Moles/Vol] 106 mmol/L Normal 98-110 [facility] Comment on above: Performed By: #### 6 399, 99748, 866, 899, 859 #### [facility] [place] [address] Ramp Service Agent: Chang Nunez MD CO2 [Moles/Vol] 26 mmol/L Normal 20-32 [facility] Comment on above: Performed By: #### 6 399, 96570, 866, 899, 859 #### [facility] [place] [address] Ramp Service Agent: Chang Nunez MD Creatinine [Mass/Vol] 0.66 mg/dL Normal 0.50-1.03 [facility] Comment on above: Performed By: #### 6 399, 57549, 866, 899, 859 #### [facility] [place] [address] Ramp Service Agent: Chang Nunez MD GFR/1.73 sq M.predicted among non-blacks MDRD (S/P/Bld) [Vol rate/Area] 104 mL/min/{1.73_m2} Normal > OR = 60 [facility] Comment on above: Performed By: #### 6 399, 04271, 866, 899, 859 #### [facility] [place] [address] Ramp Service Agent: Chang Nunez MD Glucose [Mass/Vol] 102 mg/dL High 65-99 [facility] Comment on above: Result Comment: Fasting reference interval For someone without known diabetes, a glucose value between 100 and 125 mg/dL is consistent with prediabetes and should be confirmed with a follow-up test. Performed By: #### 6 399, 29602, 866, 899, 859 #### [facility] [place] [address] Ramp Service Agent: Chang Nunez MD Potassium [Moles/Vol] 3.7 mmol/L Normal 3.5-5.3 [facility] Comment on above: Performed By: #### 6 399, 00350, 866, 899, 859 #### [facility] of [place] [address] Ramp Service Agent: Chang Nunez MD Sodium [Moles/Vol] 142 mmol/L Normal 135-146 [facility] Comment on above: Performed By: #### 6 399, 79355, 866, 899, 859 #### [facility] of [place] [address] Ramp Service Agent: Chang Nunez MD Urea nitrogen [Mass/Vol] 17 mg/dL Normal 7-25 [facility] Comment on above: Performed By: #### 6 399, 58659, 866, 899, 859 #### [facility] of [place] [address] Ramp Service Agent: Chang Nunez MD CBC (INCLUDES DIFF/PLT)on Basophils (Bld) [#/Vol] 0.032 10*3/uL Normal 0-200 [facility] Comment on above: Performed By: #### 6 399, 15826, 866, 899, 859 #### [facility] of [place] [address] Ramp Service Agent: Chang Nunez MD Basophils/100 WBC (Bld) 0.5 % Normal [facility] Comment on above: Performed By: #### 6 399, 11648, 866, 899, 859 #### [facility] of [place] [address] Ramp Service Agent: Chang Nunez MD Eosinophils (Bld) [#/Vol] 0.154 10*3/uL Normal 15-500 [facility] Comment on above: Performed By: #### 6 399, 50967, 866, 899, 859 #### [facility] [place] [address] Ramp Service Agent: Chang Nunez MD Eosinophils/100 WBC (Bld) 2.4 % Normal [facility] Comment on above: Performed By: #### 6 399, 86651, 866, 899, 859 #### [facility] [place] [address] Ramp Service Agent: Chang Nunez MD Erythrocyte distribution width (RBC) [Ratio] 12.1 % Normal 11.0-15.0 [facility] Comment on above: Performed By: #### 6 399, 02221, 866, 899, 859 #### [facility] of [place] [address] Ramp Service Agent: Chang Nunez MD Hematocrit (Bld) [Volume fraction] 42.1 % Normal 35.0-45.0 [facility] Comment on above: Performed By: #### 6 399, 98903, 866, 899, 859 #### [facility] [place] [address] Ramp Service Agent: Chang Nunez MD Hemoglobin (Bld) [Mass/Vol] 14.4 g/dL Normal 11.7-15.5 [facility] Comment on above: Performed By: #### 6 399, 17605, 866, 899, 859 #### [facility] [place] [address] Ramp Service Agent: Chang Nunez MD Lymphocytes (Bld) [#/Vol] 1.92 10*3/uL Normal 850-3900 [facility] Comment on above: Performed By: #### 6 399, 87340, 866, 899, 859 #### [facility] [place] [address] Ramp Service Agent: Chang Nunez MD Lymphocytes/100 WBC (Bld) 30.0 % Normal [facility] Comment on above: Performed By: #### 6 399, 35533, 866, 899, 859 #### [facility] [place] [address] Ramp Service Agent: Chang Nunez MD MCH (RBC) [Entitic mass] 31.6 pg Normal 27.0-33.0 [facility] Comment on above: Performed By: #### 6 399, 92599, 866, 899, 859 #### [facility] [place] [address] Ramp Service Agent: Chang Nunez MD MCHC (RBC) [Mass/Vol] 34.2 g/dL Normal 32.0-36.0 [facility] Comment on above: Result Comment: For adults, a slight decrease in the calculated MCHC value (in the range of 30 to 32 g/dL) is most likely not clinically significant; however, it should be interpreted with caution in correlation with other red cell parameters and the patient's clinical condition. Performed By: #### 6 399, 19670, 866, 899, 859 #### [facility] [place] [address] Ramp Service Agent: Chang Nunez MD MCV (RBC) [Entitic vol] 92.3 fL Normal 80.0-100.0 [facility] Comment on above: Performed By: #### 6 399, 89425, 866, 899, 859 #### [facility] [place] [address] Ramp Service Agent: Chang Nunez MD Monocytes (Bld) [#/Vol] 0.339 10*3/uL Normal 200-950 [facility] Comment on above: Performed By: #### 6 399, 25389, 866, 899, 859 #### [facility] [place] [address] Ramp Service Agent: Chang Nunez MD Monocytes/100 WBC (Bld) 5.3 % Normal [facility] Comment on above: Performed By: #### 6 399, 06107, 866, 899, 859 #### [facility] [place] [address] Ramp Service Agent: Chang Nunez MD Neutrophils (Bld) [#/Vol] 3.955 10*3/uL Normal 6742-5284 [facility] Comment on above: Performed By: #### 6 399, 52238, 866, 899, 859 #### [facility] [place] [address] Ramp Service Agent: Chang Nunez MD Neutrophils/100 WBC (Bld) 61.8 % Normal [facility] Comment on above: Performed By: #### 6 399, 14084, 866, 899, 859 #### [facility] [place] [address] Ramp Service Agent: Chang Nunez MD Platelet mean volume (Bld) [Entitic vol] 10.5 fL Normal 7.5-12.5 [facility] Comment on above: Performed By: #### 6 399, 38294, 866, 899, 859 #### [facility] [place] [address] Ramp Service Agent: Chang Nunez MD Platelets (Bld) [#/Vol] 255 10*3/uL Normal 140-400 [facility] Comment on above: Performed By: #### 6 399, 81532, 866, 899, 859 #### [facility] [place] [address] Ramp Service Agent: Chang Nunez MD RBC (Bld) [#/Vol] 4.56 10*6/uL Normal 3.80-5.10 [facility] Comment on above: Performed By: #### 6 399, 43493, 866, 899, 859 #### [facility] [place] [address] Ramp Service Agent: Chang Nunez MD WBC (Bld) [#/Vol] 6.4 10*3/uL Normal 3.8-10.8 [facility] Comment on above: Performed By: #### 6 399, 82827, 866, 899, 859 #### [facility] [place] [address] Ramp Service Agent: Chang Nunez MD T3, TOTALon 05-29-2024 T3, TOTAL 128 ng/dL Normal 76-181 [facility] Comment on above: Performed By: #### 6 399, 67774, 866, 899, 859 #### [facility] [address], [address] [place] [address] Ramp Service Agent: Chang Nunez MD T4, FREEon 05-29-2024 Free T4 [Mass/Vol] 1.2 ng/dL Normal 0.8-1.8 [facility] Comment on above: Performed By: #### 6 399, 03283, 866, 899, 859 #### [facility] [address], [address] [place] [address] Ramp Service Agent: Chang Nunez MD TEST AUTHORIZATIONon 025 CLIENT CONTACT: DEVENDRA RK Normal [facility] Comment on above: Performed By: #### 6 399, 21363, 866, 899, 859 #### [facility] [address], [address] [place] [address] Ramp Service Agent: Chang Nunez MD COMMENT Normal [facility] Comment on above: Result Comment: Plea se have the ordering physician or his or her authorized hostess party sales representative sign a copy of this report and promptly return it by faxing it to: [phone] or by returning the form to your plumber. Performed By: #### 6 [phone], [id number] [phone] #### [facility] [address], [address] [place] [address] Ramp Service Agent: Chang Nunez MD REPORT ALWAYS MESSAGE SIGNATURE Normal [facility] Comment on above: Result Comment: The laboratory testing on this patient was verbally requested or confirmed by the ordering physician or his or her authorized hostess party sales representative after contact with an employee of [employer] Federal regulations require that we maintain on file written authorization for all laboratory testing. Accordingly we are asking that the ordering physician or his or her authorized hostess party sales representative sign a copy of this report and promptly return it to the client support representative. Signature: Performed By: #### 6 [phone], [id number], [phone] #### [facility] [place] [address] Ramp Service Agent: Chang Nunez MD TEST CODE: 859SB Normal [facility] Comment on above: Performed By: #### 6 [phone], [id number], [phone] #### [facility] [place] [address] Ramp Service Agent: Chang Nunez MD TEST NAME: T3, TOTAL Normal [facility] Comment on above: Performed By: #### 6 [phone], [id number], [phone] #### [facility] [place] [address] Ramp Service Agent: Chang Nunez MD TSHon 05-29-2024 TSH Qn 0.23 m[IU]/L Low [facility] Comment on above: Result Comment: Refe rence Range > or = 20 Years 0.40-4.50 Ranges First trimester 0.26-2.66 Second trimester 0.55-2.73 Third trimester 0.43-2.91 Performed By: #### 6 [phone], [id number], [phone] #### [facility] [place] [address] Ramp Service Agent: Chang Nunez MD Laboratory - Chemistry and C hemistry - challengeon 05-27-2024 Calcium [Mass/Vol] 10.5 mg/dL Abnormal 8.6 - 10. 4 mg/dL [facility], [facility].; [facility] Chloride [Moles/Vol] 106 mmol/L Normal 98 - 11 0 mmol/L [facility], [facility].; [facility] CO2 [Moles/Vol] 26 mmol/L Normal 20 - 32 mmol/L [facility], [facility].; [facility] Creatinine [Mass/Vol] 0.66 mg/dL Normal 0.50 - 1.03 mg/dL [facility], [facility].; [facility] Free T4 [Mass/Vol] 1.2 ng/dL Normal 0.8 - 1.8 ng/dL [facility], [facility].; [facility], [facility] GFR/1.73 sq M.predicted among non-blacks MDRD (S/P/Bld) [Vol rate/Area] 104 mL/min/{1.73_m2} Normal [facility], [facility].; [facility], [facility] Glucose [Mass/Vol] 102 mg/dL Abnormal 65 - 99 mg/dL [facility].; [facility], [facility] Potassium [Moles/Vol] 3.7 mmol/L Normal 3.5 - 5.3 mmol/L [facility], [facility]; [facility], [facility] Sodium [Moles/Vol] 142 mmol/L Normal 135 - 146 mmol/L [facility], [facility]; [facility], [facility] TSH Qn 0.23 m[IU]/L Abnormal [facility]; [facility], [facility] Urea nitrogen [Mass/Vol] 17 mg/dL Normal 7 - 25 mg/dL [facility], [facility].; [facility], [facility] Laboratory - Hematology and Cell countson 05-27-2024 Basophils (Bld) [#/Vol] 0.032 10*3/uL Normal 0 - 200 {cells/uL} [facility], [facility]. Basophils/100 WBC (Bld) 0.5 % Normal [facility]; [facility], [facility] Eosinophils (Bld) [#/Vol] 0.154 10*3/uL Normal 15 - 500 {cells/uL} [facility], [facility].; [facility], [facility]. Eosinophils/100 WBC (Bld) 2.4 % Normal [facility]; [facility], [facility] Erythrocyte distribution width (RBC) [Ratio] 12.1 % Normal 11.0 - 15.0 % [facility], [facility].; [facility], [facility]. Hematocrit (Bld) [Volume fraction] 42.1 % Normal 35.0 - 45.0 % [facility], [facility].; [facility], [facility] Hemoglobin (Bld) [Mass/Vol] 14.4 g/dL Normal 11.7 - 15.5 g/dL [facility], [facility].; [facility], [facility]. Lymphocytes (Bld) [#/Vol] 1.92 10*3/uL Normal 850 - 3900 {cells/uL} [facility], [facility].; [facility] Lymphocytes/100 WBC (Bld) 30.0 % Normal [facility], [facility].; [facility], [facility]. MCH (RBC) [Entitic mass] 31.6 pg Normal 27.0 - 33.0 pg [facility], [facility].; [facility] [employer], [facility]. MCHC (RBC) [Mass/Vol] 34.2 g/dL Normal 32.0 - 36.0 g/dL [facility], [facility].; [facility] [employer] [facility], [facility]. MCV (RBC) [Entitic vol] 92.3 fL Normal 80.0 - 100.0 fL [facility], [facility].; [facility], [facility]. Monocytes (Bld) [#/Vol] 0.339 10*3/uL Normal 200 - 950 {cells/uL} [facility], [facility].; [facility] [employer] [employer] Monocytes/100 WBC (Bld) 5.3 % Normal [facility], [facility].; [facility], [facility]. Neutrophils (Bld) [#/Vol] 3.955 10*3/uL Normal 1500 - 7800 {cells/uL} [facility], [facility].; [facility] [employer] [employer] Neutrophils/100 WBC (Bld) 61.8 % Normal [facility], [facility].; [facility] [employer] [employer] Platelet mean volume (Bld) [Entitic vol] 10.5 fL Normal 7.5 - 12.5 fL [facility], [facility].; [facility] [employer] [employer] Platelets (Bld) [#/Vol] 255 10*3/uL Normal 140 - 400 [facility].; [employer] [facility] RBC (Bld) [#/Vol] 4.56 10*6/uL Normal 3.80 - 5.1 0 {Million/uL} [facility], [facility].; [facility] [employer] [employer] WBC (Bld) [#/Vol] 6.4 10*3/uL Normal 3.8 - 10.8 [facility]; [facility] [employer] No Panel Informationon 05-27 [id number] See Below Normal [facility]; [facility] [employer] [facility] Work Phone: BUN/CREATININE RATIO SEE NOTE: Normal 6 - 22 [facility]; [facility] [employer] [facility] CLIENT CONTACT: DEVENDRA BECKMAN Normal [facility]; [facility] [employer] [facility] Work Phone: T3, TOTAL 128 ng/dL Normal 76 - 181 ng/dL [facility]; [facility] [employer] Work Phone: TEST CODE: 859SB Normal [facility]; [facility] [employer] Work Phone: TEST NAME: T3, TOTAL Normal [facility]; [employer] [facility] Work Phone: Laboratory - Chemistry and C hemistry - challengeon 04-05-2023 Calcium [Mass/Vol] 10.1 mg/dL Normal 8.6 - 10. 4 mg/dL [facility]; [employer] [facility]. Chloride [Moles/Vol] 105 mmol/L Normal 98 - 11 0 mmol/L [facility]; [facility] [employer]. CO2 [Moles/Vol] 28 mmol/L Normal 20 - 32 mmol/L [facility]; [employer] [facility]. Creatinine [Mass/Vol] 0.70 mg/dL Normal 0.50 - 1.03 mg/dL [facility]; [facility] [employer] Free T4 [Mass/Vol] 1.2 ng/dL Normal 0.8 - 1.8 ng/dL [facility] [employer] [facility].; [facility] [employer] Work Phone: GFR/1.73 sq M.predicted among non-blacks MDRD (S/P/Bld) [Vol rate/Area] 103 mL/min/{1.73_m2} Normal [facility].; [facility] Glucose [Mass/Vol] 99 mg/dL Normal 65 - 99 mg/dL [facility].; [facility], [facility]. Potassium [Moles/Vol] 4.0 mmol/L Normal 3.5 - 5.3 mmol/L [facility], [facility]. Sodium [Moles/Vol] 139 mmol/L Normal 135 - 146 mmol/L [facility].; [facility], [facility]. Urea nitrogen [Mass/Vol] 13 mg/dL Normal 7 - 25 mg/dL [facility].; [facility], [facility]. No Panel Informationon 04-05 BUN/CREATININE RATIO SEE NOTE: Normal - [facility].; [facility], [facility]. TSH W/REFLEX TO FT4 0.27 {mIU/L} Abnormal [facility].; [facility], [facility]. 3D MAMM BILAT SCREENon 11-25 3D MAMM BILAT SCREEN [place] [address] Patient: REBECCA CAMPBELL Phone#: : 1970 Age: 52 Gender: F Pt. Type: Out Account: [id number] Location: [facility] Ordering: ALVIN LÓPEZ Exam Date: 11/25/2022/8:01 Family Phys: Charge Code: [id number] Physician: Karnes Order #: [id number] Dose#: PROCEDURE: BILATERAL SCREENING BREAST TOMOSYNTHESIS MAMMOGRAM WITH CAD COMPARISON: [facility], BILAT SCREENING, 09/13/2019, 14:11. [facility], 3D BILAT SCREEN, 08/30/2021, 15:06. INDICATIONS: SCREENING BREAST COMPOSITION: Heterogeneously dense, which may obscure small masses. FINDINGS: DIAGNOSTIC CATEGORY 0--INCOMPLETE: NEED ADDITIONAL IMAGING EVALUATION. RIGHT BREAST: MASS (finding with convex borders visible on two orthogonal views), characterized by benign macrolobulated versus juxtaposed morphology, mid-breast depth, 3 o'clock position, and 7 X 9 by 8 and 14 x 14 x 13 mm size. Size has increased since prior exam. LEFT BREAST: FOCAL ASYMMETRY (finding without convex borders usually visible on two orthogonal views), characterized by obscured indeterminate morphology, mid-breast depth, 2 o'clock position, and 5 x 5 and 6 x 7 x 9 mm size. These are new finding since prior exam. RECOMMENDATIONS: ULTRASOUND: BILATERAL BREASTS --We will call the patient back for an ultrasound and provide an additional report. PLEASE NOTE: A NORMAL MAMMOGRAM DOES NOT EXCLUDE THE POSSIBILITY OF BREAST CANCER. A CLINICALLY SUSPICIOUS PALPABLE LUMP SHOULD BE BIOPSIED. THIS FACILITY UTILIZES A REMINDER SYSTEM TO ENSURE THAT ALL PATIENTS RECEIVE REMINDER LETTERS FOR APPOINTMENTS. THIS INCLUDES REMINDERS FOR ROUTINE MAMMOGRAMS, DIAGNOSITC MAMMOGRAMS, OR OTHER BREAST IMAGING INTERVENTIONS WHEN APPROPRIATE. THIS PATIENT WILL BE PLACED IN THE APPROPRIATE REMINDER SYSTEM. Dictated by: Niesha Diallo MD on 11/25/2022 at 8:27 Approved by: Niesha Diallo MD on 11/25/2022 at 8:44 Normal [facility] US BREAST BILAT COMPLETEon 0 11-25-2022 US BREAST BILAT COMPLETE [place] [address] Patient: REBECCA CAMPBELL Phone#: : 1970 Age: 52 Gender: F Pt. Type: Out Account: [id number] Location: [facility] Ordering: ALVIN LÓPEZ Exam Date: 11/25/2022/8:42 Family Phys: Charge Code: [id number] Physician: Karnes Order #: [id number] Dose#: PROCEDURE: ULTRASOUND BREAST BILAT COMPARISON: [facility], US, BREAST RT COMPLETE, 01/21/2022, 8:01. INDICATIONS: Follow up mammogram TECHNIQUE: Breast ultrasound was performed, with evaluation focusing on all four quadrants. FINDINGS: DIAGNOSTIC CATEGORY 2--BENIGN: RIGHT BREAST: Multiple benign appearing simple cysts are present. The largest in the 2 o'clock position measures 15 x 9 millimeters. There are adjacent juxtaposed cysts with total dimension 19.5 millimeters. The largest cyst has increased in size since the prior exam.The finding correlates with the mammogram finding. LEFT BREAST: Simple benign-appearing cysts, there are 2 juxtaposed cysts measuring 4 x 4 and 2 x 6 millimeters in the 12 o'clock position. There is a 5 x 5 x 2 millimeter cyst in the 2 o'clock position.The finding correlates with the mammogram finding. RECOMMENDATIONS: ROUTINE MAMMOGRAM AND CLINICAL EVALUATION IN 12 MONTHS. PLEASE NOTE: A NORMAL MAMMOGRAM DOES NOT EXCLUDE THE POSSIBILITY OF BREAST CANCER. A CLINICALLY SUSPICIOUS PALPABLE LUMP SHOULD BE BIOPSIED. Dictated by: Niesha Diallo MD on 11/25/2022 at 11:33 Approved by: Niesha Diallo MD on 11/25/2022 at 11:36 Normal [facility] Laboratory - Chemistry and C hemistry - challengeon 06-30-2022 Albumin [Mass/Vol] 4.3 g/dL Normal 3.6 - 5.1 g/dL [facility], [facility].; [facility], [facility]. Albumin/Globulin [Mass ratio] 1.5 {ratio} Normal 1.0 - 2.5 [facility], [facility].; [employer] [facility], [facility]. ALP [Catalytic activity/Vol] 52 U/L Normal 37 - 153 U/L [facility], [facility].; [employer] [facility], [facility]. ALT [Catalytic activity/Vol] 20 U/L Normal 6 - 29 U/L [facility], [facility].; [facility] [employer] [employer] AST [Catalytic activity/Vol] 15 U/L Normal 10 - 35 U/L [facility], [facility].; [facility] [employer], [facility]. Bilirubin [Mass/Vol] 1.6 mg/dL Abnormal 0.2 - 1 .2 mg/dL [facility], [facility].; [facility] [employer] [employer] Calcium [Mass/Vol] 9.2 mg/dL Normal 8.6 - 10. 4 mg/dL [facility], [facility].; [employer], [facility]. Chloride [Moles/Vol] 106 mmol/L Normal 98 - 11 0 mmol/L [facility], [facility].; [employer] CO2 [Moles/Vol] 29 mmol/L Normal 20 - 32 mmol/L [facility], [facility].; [employer] [facility], [facility]. Creatinine [Mass/Vol] 0.73 mg/dL Normal 0.50 - 1.03 mg/dL [facility], [facility]. GFR/1.73 sq M.predicted among non-blacks MDRD (S/P/Bld) [Vol rate/Area] 99 mL/min/{1.73_m2} Normal [facility].; [facility], [facility] Glucose [Mass/Vol] 96 mg/dL Normal 65 - 99 mg/dL [facility].; [facility], [facility] Potassium [Moles/Vol] 3.6 mmol/L Normal 3.5 - 5.3 mmol/L [facility]; [facility], [facility] Protein [Mass/Vol] 7.2 g/dL Normal 6.1 - 8.1 g/dL [facility]; [facility], [facility] Sodium [Moles/Vol] 140 mmol/L Normal 135 - 146 mmol/L [facility]; [facility], [facility] Urea nitrogen [Mass/Vol] 16 mg/dL Normal 7 - 25 mg/dL [facility]; [facility], [facility] No Panel Informationon 06-30 BUN/CREATININE RATIO NOT APPLICABLE Normal 6 - 22 [facility]; [facility], [facility] GLOBULIN 2.9 Normal 1.9 - 3.7 [facility]; [facility], [facility]. US BREAST RT UNILATERAL COMP LETEon 01-21-2022 US BREAST RT UNILATERAL COMPLETE [place] [address] Patient: REBECCA CAMPBELL Phone#: : 1970 Age: 51 Gender: F Pt. Type: Out Account: [id number] Location: [facility] Ordering: ALVIN LÓPEZ Exam Date: 01/21/2022/8:01 Family Phys: Charge Code: [id number] Physician: Karnes Order #: [id number] Dose#: PROCEDURE: ULTRASOUND BREAST RT COMPARISON: [facility], BILAT SCREENING, 09/13/2019, 14:11. [facility], [facility], 3D BILAT SCREEN, 08/30/2021, 15:06. [facility], US, BREAST RT COMPLETE, 08/30/2021, 15:27. INDICATIONS: 6 month follow up TECHNIQUE: Breast ultrasound was performed, with evaluation focusing on all four quadrants. FINDINGS: DIAGNOSTIC CATEGORY 2--BENIGN FINDING: RIGHT BREAST: Cluster of likely benign cysts, anechoic echotexture, anterior depth, 3 o'clock position, and 17x7x9 mm size, no change. RIGHT BREAST: Simple benign-appearing cyst with septation, anechoic echotexture, mid- breast depth, 9 o'clock position, and 6x3x8 mm size, no change. RECOMMENDATIONS: ROUTINE MAMMOGRAM AND CLINICAL EVALUATION IN 6 MONTHS at the time of annual bilateral screening. PLEASE NOTE: A NORMAL MAMMOGRAM DOES NOT EXCLUDE THE POSSIBILITY OF BREAST CANCER. A CLINICALLY SUSPICIOUS PALPABLE LUMP SHOULD BE BIOPSIED. Dictated by: Michell Clarke MD on 01/21/2022 at 10:42 Approved by: Michell Clarke MD on 01/21/2022 at 10:57 Normal [facility] Laboratory - Chemistry and C hemistry - challengeon 08-05-2021 Calcium [Mass/Vol] 10.1 mg/dL Normal 8.6 - 10. 4 mg/dL [facility], [facility].; [facility] Chloride [Moles/Vol] 106 mmol/L Normal 98 - 11 0 mmol/L [facility], [facility].; [facility] CO2 [Moles/Vol] 26 mmol/L Normal 20 - 32 mmol/L [facility], [facility].; [facility] Creatinine [Mass/Vol] 0.76 mg/dL Normal 0.50 - 1.05 mg/dL [facility], [facility].; [facility] GFR/1.73 sq M.predicted among blacks MDRD (S/P/Bld) [Vol rate/Area] 105 mL/min/{1.73_m2} Normal [facility], [facility].; [facility] Glucose [Mass/Vol] 102 mg/dL Abnormal 65 - 99 mg/dL [facility], [facility].; [facility] Potassium [Moles/Vol] 3.8 mmol/L Normal 3.5 - 5.3 mmol/L [facility]; [employer] Sodium [Moles/Vol] 140 mmol/L Normal 135 - 146 mmol/L [facility]; [employer] Urea nitrogen [Mass/Vol] 13 mg/dL Normal 7 - 25 mg/dL [facility].; [employer]. No Panel Informationon 08-05 [id number] SEE NOTE Normal [facility] [employer] BUN/CREATININE RATIO NOT APPLICABLE Normal 6 - 22 [facility]; [employer]. CLINICAL INFORMATION: SEE NOTE Normal [facility].; [facility] [employer] SIDING COREBOARD INSPECTOR: SEE NOTE Normal [facility] [employer].; [employer] eGFR NON-AFR. WELSH 90 Normal [facility].; [employer] HPV mRNA E6/E7 Not detected Normal [facility]; [employer]. INTERPRETATION/RESUL T: SEE NOTE Normal [facility].; [employer]. LMP: SEE NOTE Normal [facility] [employer].; [employer]. PREV. BX: SEE NOTE Normal [facility] [employer].; [employer] PREV. PAP: SEE NOTE Normal [facility] [employer].; [employer]. SOURCE: SEE NOTE Normal [facility].; [employer]. STATEMENT OF ADEQUACY: SEE NOTE Normal [facility] [employer] [employer]. Laboratory - Chemistry and C hemistry - challengeon 07-22-2020 Albumin [Mass/Vol] 4.1 g/dL Normal 3.6 - 5.1 g/dL [facility]; [employer]. Albumin/Globulin [Mass ratio] 1.4 {ratio} Normal 1.0 - 2.5 [facility].; [employer]. ALP [Catalytic activity/Vol] 49 U/L Normal 37 - 153 U/L [facility] [employer].; [employer]. ALT [Catalytic activity/Vol] 15 U/L Normal 6 - 29 U/L [facility], [facility]. AST [Catalytic activity/Vol] 15 U/L Normal 10 - 35 U/L [facility], [facility]. Bilirubin [Mass/Vol] 1.7 mg/dL Abnormal 0.2 - 1 .2 mg/dL [facility], [facility] Calcium [Mass/Vol] 9.4 mg/dL Normal 8.6 - 10. 4 mg/dL [facility].; [facility], [facility] Chloride [Moles/Vol] 106 mmol/L Normal 98 - 11 0 mmol/L [facility]; [facility], [facility]. Cholesterol [Mass/Vol] 167 mg/dL Normal [facility]; [facility], [facility] Cholesterol in HDL [Mass/Vol] 69 mg/dL Normal [facility]; [facility], [facility] Cholesterol in LDL [Mass/Vol] 84 mg/dL Normal [facility]; [facility], [facility]. CO2 [Moles/Vol] 29 mmol/L Normal 20 - 32 mmol/L [facility]; [facility], [facility]. Creatinine [Mass/Vol] 0.73 mg/dL Normal 0.50 - 1.05 mg/dL [facility]; [facility], [facility]. Free T4 [Mass/Vol] 1.1 ng/dL Normal 0.8 - 1.8 ng/dL [facility], [facility].; [facility], [facility]. GFR/1.73 sq M.predicted among blacks MDRD (S/P/Bld) [Vol rate/Area] 111 mL/min/{1.73_m2} Normal [facility].; [facility], [facility]. Glucose [Mass/Vol] 95 mg/dL Normal 65 - 99 mg/dL [facility].; [facility], [facility]. Potassium [Moles/Vol] 4.2 mmol/L Normal 3.5 - 5.3 mmol/L [facility], [facility] Protein [Mass/Vol] 7.1 g/dL Normal 6.1 - 8.1 g/dL [facility]; [facility], [facility] Sodium [Moles/Vol] 139 mmol/L Normal 135 - 146 mmol/L [facility]; [facility] Triglyceride [Mass/Vol] 48 mg/dL Normal [facility]; [facility] TSH Qn 0.25 m[IU]/L Abnormal [facility]; [facility] Urea nitrogen [Mass/Vol] 13 mg/dL Normal 7 - 25 mg/dL [facility]; [facility] No Panel Informationon 07-22 BUN/CREATININE RATIO NOT APPLICABLE Normal [facility]; [facility] CHOL/HDLC RATIO 2.4 Normal [facility]; [facility] eGFR NON-AFR. WELSH 95 Normal [facility]; [facility] GLOBULIN 3.0 Normal 1.9 - 3.7 [facility]; [facility] NON HDL CHOLESTEROL 98 Normal [facility]; [facility] Laboratory - Chemistry and C hemistry - challengeon 07-26-2019 Albumin [Mass/Vol] 4.0 g/dL Normal 3.6 - 5.1 g/dL [facility]; [facility], [facility] Albumin/Globulin [Mass ratio] 1.4 {ratio} Normal 1.0 - 2.5 [facility]; [employer] [facility] ALP [Catalytic activity/Vol] 46 U/L Normal 37 - 153 U/L [facility]; [facility], [facility] ALT [Catalytic activity/Vol] 14 U/L Normal 6 - 29 U/L [facility]; [facility], [facility]. AST [Catalytic activity/Vol] 14 U/L Normal 10 - 35 U/L [facility]; [facility] [employer] [employer] [facility] Bilirubin [Mass/Vol] 1.2 mg/dL Normal 0.2 - 1 .2 mg/dL [facility], [facility] Calcium [Mass/Vol] 9.3 mg/dL Normal 8.6 - 10. 4 mg/dL [facility]; [facility], [facility] Chloride [Moles/Vol] 108 mmol/L Normal 98 - 11 0 mmol/L [facility]; [facility], [facility] CO2 [Moles/Vol] 24 mmol/L Normal 20 - 32 mmol/L [facility]; [facility], [facility] Creatinine [Mass/Vol] 0.76 mg/dL Normal 0.50 - 1.05 mg/dL [facility]; [facility], [facility] GFR/1.73 sq M.predicted among blacks MDRD (S/P/Bld) [Vol rate/Area] 106 mL/min/{1.73_m2} Normal [facility]; [facility], [facility] Glucose [Mass/Vol] 97 mg/dL Normal 65 - 99 mg/dL [facility]; [facility], [facility] Potassium [Moles/Vol] 3.7 mmol/L Normal 3.5 - 5.3 mmol/L [facility]; [facility], [facility] Protein [Mass/Vol] 6.9 g/dL Normal 6.1 - 8.1 g/dL [facility]; [facility], [facility] Sodium [Moles/Vol] 140 mmol/L Normal 135 - 146 mmol/L [facility]; [facility], [facility] Urea nitrogen [Mass/Vol] 19 mg/dL Normal 7 - 25 mg/dL [facility]; [facility], [facility] No Panel Informationon 07-25 BUN/CREATININE RATIO NOT APPLICABLE Normal 6 - [facility]; [facility], [facility] eGFR NON-AFR. WELSH 91 Normal [facility]; [facility] [employer] [facility], [facility] GLOBULIN 2.9 Normal 1.9 - 3.7 [facility], [facility]; [facility], [facility] Laboratory - Chemistry and C hemistry - challengeon 04-06-2018 Albumin [Mass/Vol] 4.2 g/dL Normal 3.6 - 5.1 g/dL [facility], [facility].; [facility], [facility]. Albumin/Globulin [Mass ratio] 1.5 {ratio} Normal 1.0 - 2.5 [facility], [facility]. ALP [Catalytic activity/Vol] 43 U/L Normal 33 - 115 U/L [facility], [facility]. ALT [Catalytic activity/Vol] 13 U/L Normal 6 - 29 U/L [facility], [facility]. AST [Catalytic activity/Vol] 13 U/L Normal 10 - 35 U/L [facility], [facility].; [facility], [facility]. Bilirubin [Mass/Vol] 2.2 mg/dL Abnormal 0.2 - 1 .2 mg/dL [facility], [facility].; [facility], [facility]. Calcium [Mass/Vol] 9.8 mg/dL Normal 8.6 - 10. 2 mg/dL [facility], [facility].; [facility], [facility]. Chloride [Moles/Vol] 108 mmol/L Normal 98 - 11 0 mmol/L [facility], [facility]. CO2 [Moles/Vol] 23 mmol/L Normal 20 - 32 mmol/L [facility], [facility]. Creatinine [Mass/Vol] 0.71 mg/dL Normal 0.50 - 1.10 mg/dL [facility], [facility].; [facility], [facility]. GFR/1.73 sq M.predicted among blacks MDRD (S/P/Bld) [Vol rate/Area] 117 {ML/MIN/1.73M2} Normal [facility], [facility].; [facility], [facility]. GFR/1.73 sq M.predicted MDRD (S/P/Bld) [Vol rate/Area] 101 {ML/MIN/1.73M2} Normal [facility], [facility].; [facility] Globulin (S) [Mass/Vol] 2.9 g/dL Normal 1.9 - 3.7 g/dL [facility], [facility].; [facility] Glucose [Mass/Vol] 97 mg/dL Normal 65 - 99 mg/dL [facility].; [facility] Potassium [Moles/Vol] 4.0 mmol/L Normal 3.5 - 5.3 mmol/L [facility]; [facility] Protein [Mass/Vol] 7.1 g/dL Normal 6.1 - 8.1 g/dL [facility]; [facility] Sodium [Moles/Vol] 139 mmol/L Normal 135 - 146 mmol/L [facility]; [facility] TSH Qn 0.46 m[IU]/L Normal 0.40 - 4.50 {mIU/L} [facility]; [facility], [facility] Urea nitrogen [Mass/Vol] 16 mg/dL Normal 7 - 25 mg/dL [facility]; [facility], [facility] Urea nitrogen/Creatinine [Mass ratio] 21.8 mg/mg Normal 6 - 22 [facility]; [facility] Laboratory - Chemistry and C hemistry - challengeon 06-03-2017 Free T4 [Mass/Vol] 1.1 ng/dL Normal 0.8 - 1.8 ng/dL [facility]; [facility], [facility]. TSH Qn 0.52 m[IU]/L Normal 0.40 - 4.50 {mIU/L} [facility]; [facility], [facility] Laboratory - Chemistry and C hemistry - challengeon 04-01-2017 Albumin [Mass/Vol] 4.2 g/dL Normal 3.6 - 5.1 g/dL [facility]; [facility] Albumin/Globulin [Mass ratio] 1.3 {ratio} Normal 1.0 - 2.5 [facility]; [facility] ALP [Catalytic activity/Vol] 52 U/L Normal 33 - 115 U/L [facility], [facility] ALT [Catalytic activity/Vol] 23 U/L Normal 6 - 29 U/L [facility]; [facility] AST [Catalytic activity/Vol] 20 U/L Normal 10 - 35 U/L [facility], [facility].; [facility], [facility]. Bilirubin [Mass/Vol] 1.3 mg/dL Abnormal 0.2 - 1 .2 mg/dL [facility], [facility]. Calcium [Mass/Vol] 9.5 mg/dL Normal 8.6 - 10. 2 mg/dL [facility], [facility]. Chloride [Moles/Vol] 106 mmol/L Normal 98 - 11 0 mmol/L [facility], [facility]. Cholesterol [Mass/Vol] 162 mg/dL Normal [facility], [facility]. Cholesterol in HDL [Mass/Vol] 62 mg/dL Normal [facility], [facility]. Cholesterol in LDL [Mass/Vol] 87 mg/dL Normal 0 - 100 mg/dL [facility], [facility]. Cholesterol non HDL [Mass/Vol] 100 mg/dL Normal [facility], [facility]. Cholesterol.total/Ch olesterol in HDL [Mass ratio] 2.6 {ratio} Normal [facility], [facility]. CO2 [Moles/Vol] 28 mmol/L Normal 20 - 31 mmol/L [facility], [facility]. Creatinine [Mass/Vol] 0.75 mg/dL Normal 0.50 - 1.10 mg/dL [facility], [facility].; [facility], [facility]. GFR/1.73 sq M.predicted among blacks MDRD (S/P/Bld) [Vol rate/Area] 110 {ML/MIN/1.73M2} Normal [facility], [facility].; [facility], [facility]. GFR/1.73 sq M.predicted MDRD (S/P/Bld) [Vol rate/Area] 95 {ML/MIN/1.73M2} Normal [facility], [facility].; [facility], [facility]. Globulin (S) [Mass/Vol] 3.3 g/dL Normal 1.9 - 3.7 g/dL [facility]; [facility], [facility] Glucose [Mass/Vol] 100 mg/dL Abnormal 65 - 99 mg/dL [facility]; [facility], [facility] Potassium [Moles/Vol] 3.8 mmol/L Normal 3.5 - 5.3 mmol/L [facility]; [facility], [facility] Protein [Mass/Vol] 7.5 g/dL Normal 6.1 - 8.1 g/dL [facility]; [facility] Sodium [Moles/Vol] 141 mmol/L Normal 135 - 146 mmol/L [facility]; [facility] Triglyceride [Mass/Vol] 52 mg/dL Normal [facility]; [facility], [facility] TSH Qn 0.32 m[IU]/L Abnormal 0.40 - 4.50 {mIU/L} [facility]; [facility], [facility] Urea nitrogen [Mass/Vol] 17 mg/dL Normal 7 - 25 mg/dL [facility]; [facility], [facility] Urea nitrogen/Creatinine [Mass ratio] 22.8 mg/mg Abnormal 6 - 22 [facility]; [facility] Laboratory - Cytologyon 02-03 Microscopic observation Cyto stain Nom (Cvx) Normal [facility]; [facility], [facility] Laboratory - Chemistry and C hemistry - challengeon 08-20-2016 Albumin [Mass/Vol] 4.3 g/dL Normal 3.6 - 5.1 g/dL [facility]; [facility], [facility] Albumin/Globulin [Mass ratio] 1.3 {ratio} Normal 1.0 - 2.5 [facility]; [facility], [facility] ALP [Catalytic activity/Vol] 48 U/L Normal 33 - 115 U/L [facility]; [facility], [facility]. ALT [Catalytic activity/Vol] 12 U/L Normal 6 - 29 U/L [facility]; [facility], [facility] AST [Catalytic activity/Vol] 13 U/L Normal 10 - 35 U/L [facility], [facility]. Bilirubin [Mass/Vol] 1.5 mg/dL Abnormal 0.2 - 1 .2 mg/dL [facility], [facility]. Calcium [Mass/Vol] 9.4 mg/dL Normal 8.6 - 10. 2 mg/dL [facility], [facility]. Chloride [Moles/Vol] 108 mmol/L Normal 98 - 11 0 mmol/L [facility], [facility]. CO2 [Moles/Vol] 23 mmol/L Normal 20 - 31 mmol/L [facility], [facility] Creatinine [Mass/Vol] 0.91 mg/dL Normal 0.50 - 1.10 mg/dL [facility], [facility]. GFR/1.73 sq M.predicted among blacks MDRD (S/P/Bld) [Vol rate/Area] 87 {ML/MIN/1.73M2} Normal [facility], [facility]. GFR/1.73 sq M.predicted MDRD (S/P/Bld) [Vol rate/Area] 75 {ML/MIN/1.73M2} Normal [facility], [facility]. Globulin (S) [Mass/Vol] 3.3 g/dL Normal 1.9 - 3.7 g/dL [facility], [facility].; [facility], [facility]. Glucose [Mass/Vol] 98 mg/dL Normal 65 - 99 mg/dL [facility].; [facility], [facility]. Potassium [Moles/Vol] 3.7 mmol/L Normal 3.5 - 5.3 mmol/L [facility], [facility]. Protein [Mass/Vol] 7.6 g/dL Normal 6.1 - 8.1 g/dL [facility], [facility] Sodium [Moles/Vol] 138 mmol/L Normal 135 - 146 mmol/L [facility], [facility]. Urea nitrogen [Mass/Vol] 16 mg/dL Normal 7 - 25 mg/dL [facility]; [facility] Urea nitrogen/Creatinine [Mass ratio] 17.9 mg/mg Normal 6 - 22 [facility]; [facility] Laboratory - Chemistry and C hemistry - challengeon 08-05-2015 Albumin [Mass/Vol] 4.1 g/dL Normal 3.4 - 4.8 g/dL [facility]; [facility], [facility] Albumin [Mass/Vol] 1.3 g/dL Normal 0.9 - 1.6 [facility]; [facility] ALP [Catalytic activity/Vol] 36 U/L Abnormal 38 - 126 U/L [facility]; [facility], [facility]. ALT [Catalytic activity/Vol] 11 U/L Normal 8 - 35 U/L [facility]; [facility], [facility] ALT No additional P-5'-P [Catalytic activity/Vol] 11 U/L Normal 8 - 35 U/L [facility]; [facility], [facility] Anion gap [Moles/Vol] 10 mmol/L Normal 10 - 20 mmol/L [facility]; [facility], [facility]. AST [Catalytic activity/Vol] 12 U/L Abnormal 13 - 39 U/L [facility], [facility]. Bilirubin [Mass/Vol] 1.6 mg/dL Abnormal 0.0 - 1 .5 mg/dL [facility], [facility]. Calcium [Mass/Vol] 9.2 mg/dL Normal 8.6 - 10. 2 mg/dL [facility], [facility]. Chloride [Moles/Vol] 106 mmol/L Normal 98 - 10 7 mmol/L [facility]; [facility], [facility]. CO2 [Moles/Vol] 26.0 mmol/L Normal 13.0 - 29.0 mmol/L [facility], [facility] Comprehensive metabolic 2000 panel CMP with eGFR Normal [facility]; [facility], [facility] Creatinine [Mass/Vol] 0.7 mg/dL Normal 0.6 - 1.2 mg/dL [facility].; [employer] GFR/1.73 sq M.predicted among blacks MDRD (S/P/Bld) [Vol rate/Area] mL/min/{1.73_m2} Normal 60 - 999 {ML/MINUTE} [facility], [facility].; [facility] [employer] [facility], [facility]. GFR/1.73 sq M.predicted MDRD (S/P/Bld) [Vol rate/Area] mL/min/{1.73_m2} Normal 60 - 999 {ML/MINUTE} [facility], [facility].; [facility] [employer] Globulin (S) [Mass/Vol] 3.2 g/dL Normal 1.5 - 3.8 g/dL [facility].; [facility] [employer] Glucose [Mass/Vol] 97 mg/dL Normal 74 - 106 mg/dL [facility].; [facility] [employer] Potassium [Moles/Vol] 3.3 mmol/L Abnormal 3.5 - 5.1 mmol/L [facility].; [employer] Protein [Mass/Vol] 7.3 g/dL Normal 6.4 - 8.3 g/dL [facility].; [facility] [employer] Sodium [Moles/Vol] 139 mmol/L Normal 136 - 145 mmol/L [facility], [facility].; [employer] Urea nitrogen [Mass/Vol] 10 mg/dL Normal 6 - 20 mg/dL [facility] [employer] [facility].; [employer] Urea nitrogen/Creatinine [Mass ratio] 14 {ratio} Normal 0 - 30 {ratio} [employer] [facility].; [employer] No Panel Informationon 08-04 AGE 45 {years} Normal [facility] [employer] [facility] [employer] Laboratory - Chemistry and C hemistry - challengeon 01-08-2015 Albumin [Mass/Vol] 4.3 g/dL Normal 3.6 - 5.1 g/dL [facility] [employer] [facility] [place] [employer] Albumin/Globulin [Mass ratio] 1.3 {ratio} Normal 1.0 - 2.5 [facility]. ALP [Catalytic activity/Vol] 51 U/L Normal 33 - 115 U/L [facility], [facility]. ALT [Catalytic activity/Vol] 11 U/L Normal 6 - 29 U/L [facility]. AST [Catalytic activity/Vol] 12 U/L Normal 10 - 35 U/L [facility] [employer] [facility]. Bilirubin [Mass/Vol] 2.2 mg/dL Abnormal 0.2 - 1 .2 mg/dL [facility] Calcium [Mass/Vol] 9.7 mg/dL Normal 8.6 - 10. 2 mg/dL [facility] [employer] [facility] Chloride [Moles/Vol] 104 mmol/L Normal 98 - 11 0 mmol/L [facility]; [facility] [employer] [facility]. Cholesterol [Mass/Vol] 157 mg/dL Normal 125 - 200 mg/dL [facility].; [facility]. Cholesterol in HDL [Mass/Vol] 61 mg/dL Normal [facility]; [facility]. Cholesterol in LDL [Mass/Vol] 83 mg/dL Normal [facility].; [facility] [employer] [facility]. Cholesterol non HDL [Mass/Vol] 96 mg/dL Normal [facility].; [facility] [employer] [facility]. Cholesterol.total/Ch olesterol in HDL [Mass ratio] 2.6 {ratio} Normal [facility].; [facility] [employer] [facility]. CO2 [Moles/Vol] 24 mmol/L Normal 19 - 30 mmol/L [facility].; [facility]. Creatinine [Mass/Vol] 0.91 mg/dL Normal 0.50 - 1.10 mg/dL [facility].; [facility] [employer] [facility]. GFR/1.73 sq M.predicted among blacks MDRD (S/P/Bld) [Vol rate/Area] 88 {ML/MIN/1.73M2} Normal [facility]; [facility] GFR/1.73 sq M.predicted MDRD (S/P/Bld) [Vol rate/Area] 76 {ML/MIN/1.73M2} Normal [facility]; [facility], [facility] Globulin (S) [Mass/Vol] 3.3 g/dL Normal 1.9 - 3.7 g/dL [facility]; [facility], [facility] Glucose [Mass/Vol] 99 mg/dL Normal 65 - 99 mg/dL [facility]; [facility], [facility] Potassium [Moles/Vol] 4.3 mmol/L Normal 3.5 - 5.3 mmol/L [facility]; [facility], [facility] Protein [Mass/Vol] 7.6 g/dL Normal 6.1 - 8.1 g/dL [facility]; [facility], [facility] Sodium [Moles/Vol] 139 mmol/L Normal 135 - 146 mmol/L [facility]; [facility], [facility] Triglyceride [Mass/Vol] 64 mg/dL Normal [facility]; [facility], [facility] TSH Qn 0.45 m[IU]/L Normal 0.40 - 4.50 {mIU/L} [facility]; [facility], [facility] Urea nitrogen [Mass/Vol] 16 mg/dL Normal 7 - 25 mg/dL [facility]; [facility], [facility] Urea nitrogen/Creatinine [Mass ratio] 17.1 mg/mg Normal 6 - 22 [facility]; [facility] Vital Signs Date Time Vital Sign Value Performing Clinician Facility 10-31-2024 07:52-0400 Body height 172.09 cm Brigitte Mosqueda [facility]; [facility] 10-31-2024 07:52-0400 Body mass index (BMI) [Ratio] 31.86 kg/m2 Brigitte Mosqueda [facility]; [facility] 10-31-2024 07:52-0400 Body surface area Derived from formula 2.07 m2 Brigitte Hamiltonlabach ADJUSTER LEADER [facility], [facility].; [facility] 10-31-2024 07:52-0400 Body weight 94.35 kg Brigitte Hamiltonlabach ADJUSTER LEADER [facility], [facility].; [facility] [employer] [facility], [facility]. 10-31-2024 07:52-0400 Diastolic blood pressure 76 mm[Hg] Brigitte Hamiltonlabach [facility].; [facility] [employer] [facility]. Comment on above: Patient Position: Sitting; Cuff Location : Left Arm; Cuff Size: Standard 10-31-2024 07:52-0400 Heart rate 66 /min Brigitte Hamiltonlabach [facility], [facility].; [facility] [employer] [facility]. Comment on above: Pattern: Regular 10-31-2024 07:52-0400 Systolic blood pressure 147 mm[Hg] Brigitte Hamiltonlabach [facility], [facility].; [facility] [employer] [facility]. Comment on above: Patient Position: Sitting; Cuff Location : Left Arm; Cuff Size: Standard 09-20-2024 10:29-0400 Body height 172.09 cm Alvin Zehra Kerner PA-C Work Phone: [facility].; [employer] [facility]. 09-20-2024 10:29-0400 Body mass index (BMI) [Ratio] 31.86 kg/m2 Alvin Zehra López PA-C Work Phone: [facility] [employer] [facility]. 09-20-2024 10:29-0400 Body surface area Derived from formula 2.07 m2 Alvin Zehra López PA-C Work Phone: [employer] [facility] [employer] 09-20-2024 10:29-0400 Body temperature 98 [degF] Alvin J López PA-C Work Phone: [facility] [employer] [facility].; [employer]. Comment on above: Method: Tympanic 09-20-2024 10:29-0400 Body weight 94.35 kg Alvin J López PA-C Work Phone: [facility].; [employer] [facility]. 09-20-2024 10:29-0400 Diastolic blood pressure 80 mm[Hg] Alvin BLANDON-C Work Phone: [facility].; [employer]. Comment on above: Patient Position: Sitting; Cuff Location : Left Arm; Cuff Size: Standard 09-20-2024 10:29-0400 Heart rate 66 /min Alvin BLANDON-C Work Phone: [facility].; [employer]. Comment on above: Pattern: Regular 09-20-2024 10:29-0400 Systolic blood pressure 156 mm[Hg] Alvin BLANDON-C Work Phone: [facility].; [employer]. Comment on above: Patient Position: Sitting; Cuff Location : Left Arm; Cuff Size: Standard 05-27-2024 15:40-0400 Body height 172.09 cm Brigitte Mosqueda LPN [facility], [facility].; [facility] [employer] [facility], [facility]. 05-27-2024 15:40-0400 Body mass index (BMI) [Ratio] 32.17 kg/m2 Brigitte Mosqueda LPN [facility], [facility].; [facility] [employer] [facility], [facility]. 05-27-2024 15:40-0400 Body surface area Derived from formula 2.08 m2 Brigitte Mosqueda LPN [facility].; [facility] [employer] [facility]. 05-27-2024 15:40-0400 Body weight 95.26 kg Brigitte Mosqueda LPN [facility] [employer] [facility].; [employer], [facility]. 05-27-2024 15:40-0400 Diastolic blood pressure 94 mm[Hg] Brigitte Mosqueda LPN [facility].; [employer], [facility]. Comment on above: Patient Position: Sitting; Cuff Location : Right Arm; Cuff Size: Standard 05-27-2024 15:40-0400 Heart rate 76 /min Brigitte Mosqueda LPN [facility] [employer]. Comment on above: Pattern: Regular 05-27-2024 15:40-0400 Systolic blood pressure 169 mm[Hg] Brigitte Mosqueda ADJUSTER LEADER [facility].; [employer]. Comment on above: Patient Position: Sitting; Cuff Location : Right Arm; Cuff Size: Standard 04-05-2023 10:02-0500 Body height 172.09 cm Brigitte Hamiltonlabach [facility].; [place] [employer]. 04-05-2023 10:02-0500 Body mass index (BMI) [Ratio] 30.79 kg/m2 Brigitte Kinsey Jaylin [facility] [employer] [facility] [place] [employer]. 04-05-2023 10:02-0500 Body surface area Derived from formula 2.04 m2 Brigitte Hamiltonlabach [facility] [employer] [facility].; [employer]. 04-05-2023 10:02-0500 Body weight 91.17 kg Brigitte Kinsey Jaylin [facility] [employer] [facility].; [employer]. 04-05-2023 10:02-0500 Diastolic blood pressure 82 mm[Hg] Brigitte Mosqueda [facility] [employer] [facility].; [employer]. Comment on above: Patient Position: Sitting; Cuff Location : Left Arm; Cuff Size: Standard 04-05-2023 10:02-0500 Heart rate 71 /min Brigitte Hamiltonlabach ADJUSTER LEADER [facility] [employer]. Comment on above: Pattern: Regular 04-05-2023 10:02-0500 Systolic blood pressure 155 mm[Hg] Brigitte Mosqueda ADJUSTER LEADER [place] [employer] [facility].; [employer]. Comment on above: Patient Position: Sitting; Cuff Location : Left Arm; Cuff Size: Standard 06-30-2022 08:06-0400 Body height 172.09 cm Alvin López PA-C Work Phone: [place] [employer] [facility].; [employer]. 06-30-2022 08:06-0400 Body mass index (BMI) [Ratio] 32.01 kg/m2 Alvin Kerner PA-C Work Phone: [employer].; [place] [employer] [facility]. 06-30-2022 08:06-0400 Body surface area Derived from formula 2.08 m2 Alvin Kerner PA-C Work Phone: [employer].; [place] [facility]. 06-30-2022 08:06-0400 Body weight 94.8 kg Alvin Kerner PA-C Work Phone: [employer].; [facility]. 06-30-2022 08:06-0400 Diastolic blood pressure 82 mm[Hg] Alvin Kerner PA-C Work Phone: [employer].; [employer]. Comment on above: Patient Position: Sitting; Cuff Location : Right Arm; Cuff Size: Standard 06-30-2022 08:06-0400 Heart rate 71 /min Alvin Kerner PA-C Work Phone: [email or web address]; [employer]. Comment on above: Pattern: Regular 06-30-2022 08:06-0400 Systolic blood pressure 130 mm[Hg] Alvin Kerner PA-C Work Phone: [employer].; [employer]. Comment on above: Patient Position: Sitting; Cuff Location : Right Arm; Cuff Size: Standard 08-05-2021 09:22-0400 Body height 172.09 cm Alvin Kerner PA-C Work Phone: [email or web address]; [employer]. 08-05-2021 09:22-0400 Body mass index (BMI) [Ratio] 30.48 kg/m2 Alvin Shahid López PA-C Work Phone: [employer].; [employer]. 08-05-2021 09:22-0400 Body surface area Derived from formula 2.03 m2 Alvin Shahid López PA-C Work Phone: [facility].; [place] [employer] [facility] 08-05-2021 09:22-0400 Body weight 90.27 kg Alvin Zehra BLANDON-Shad Work Phone: [facility] [employer]. 08-05-2021 09:22-0400 Diastolic blood pressure 80 mm[Hg] Alvin BLANDON-C Work Phone: [facility] [employer]; [employer]. Comment on above: Patient Position: Sitting; Cuff Location : Left Arm; Cuff Size: Standard 08-05-2021 09:22-0400 Heart rate 84 /min Alvin BLANDON-Shad Work Phone: [place] [employer] [facility]; [employer]. Comment on above: Pattern: Regular 08-05-2021 09:22-0400 Systolic blood pressure 126 mm[Hg] Alvin BLANDON-C Work Phone: [place] [employer] [facility]; [employer]. Comment on above: Patient Position: Sitting; Cuff Location : Left Arm; Cuff Size: Standard 07-28-2021 14:23-0400 Body height 170.18 cm Brigitte Mosqueda LPN [facility].; [employer]. 07-28-2021 14:23-0400 Body mass index (BMI) [Ratio] 31.17 kg/m2 Brigitte Mosqueda LPN [facility].; [place] [employer] [facility]. 07-28-2021 14:23-0400 Body surface area Derived from formula 2.02 m2 Brigitte Mosqueda LPN [place] [employer] [facility].; [place] [facility]. 07-28-2021 14:23-0400 Body weight 90.27 kg Brigitte Mosqueda LPN [facility].; [employer]. 07-28-2021 14:23-0400 Diastolic blood pressure 83 mm[Hg] Brigitte [facility]queda LPN [facility].; [employer]. Comment on above: Patient Position: Sitting; Cuff Location : Left Arm; Cuff Size: Standard 07-28-2021 14:23-0400 Heart rate 80 /min Brigitte Mosqueda [facility].; [employer] [facility] Dayton[facility]. Comment on above: Pattern: Regular 07-28-2021 14:23-0400 Systolic blood pressure 154 mm[Hg] Brigitte Kinsey Jaylin [facility] [employer]. Comment on above: Patient Position: Sitting; Cuff Location : Left Arm; Cuff Size: Standard 07-22-2020 08:41-0400 Body height 170.18 cm Brigitte Kinsey [facility].; [place] [employer] [facility]. 07-22-2020 08:41-0400 Body mass index (BMI) [Ratio] 31.01 kg/m2 Brigitte Kinsey [facility], [facility].; [place] [employer] [facility]. 07-22-2020 08:41-0400 Body surface area Derived from formula 2.[address] [facility], [facility].; [employer]. 07-22-2020 08:41-0400 Body weight 89.81 kg Brigitte M Jaylin [facility].; [place] [employer] [facility]. 07-22-2020 08:41-0400 Diastolic blood pressure 96 mm[Hg] Brigitte Hamiltonach [facility].; [employer]. Comment on above: Patient Position: Sitting; Cuff Location : Left Arm; Cuff Size: Standard 07-22-2020 08:41-0400 Heart rate 83 /min Brigitte Mosqueda [facility] [employer] [facility], [employer]; [employer]. Comment on above: Pattern: Regular 07-22-2020 08:41-0400 Systolic blood pressure 165 mm[Hg] Brigitte Hamiltonach [facility] [employer] [facility].; [employer]. Comment on above: Patient Position: Sitting; Cuff Location : Left Arm; Cuff Size: Standard 07-26-2019 09:55-0400 Body height 170.18 cm Alvin López PA-C Work Phone: [employer]; [employer]. 07-26-2019 09:55-0400 Body mass index (BMI) [Ratio] 31.64 kg/m2 Alvin Kerner PA-C Work Phone: [employer].; [employer]. 07-26-2019 09:55-0400 Body surface area Derived from formula 2.03 m2 Alvin Shahid López PA-C Work Phone: [employer]; [employer]. 07-26-2019 09:55-0400 Body weight 91.63 kg Alvin Kerner PA-C Work Phone: [employer]; [employer]. 07-26-2019 09:55-0400 Diastolic blood pressure 90 mm[Hg] Alvin Kerner PA-C Work Phone: [employer]; [employer]. Comment on above: Patient Position: Sitting; Cuff Location : Left Arm; Cuff Size: Standard 07-26-2019 09:55-0400 Heart rate 92 /min Alvin Kerner PA-C Work Phone: [employer]; [employer]. Comment on above: Pattern: Regular 07-26-2019 09:55-0400 Systolic blood pressure 162 mm[Hg] Alvin Shahid López PA-C Work Phone: [email or web address]; [employer]. Comment on above: Patient Position: Sitting; Cuff Location : Left Arm; Cuff Size: Standard 04-06-2018 09:26-0500 Body height 170.18 cm Joy Richardson LPN [employer].; [employer]. 04-06-2018 09:26-0500 Body mass index (BMI) [Ratio] 30.7 kg/m2 Joy Richardson LPN [employer].; [employer]. 04-06-2018 09:26-0500 Body surface area Derived from formula 2 m2 Joy Richardson ADJUSTER LEADER [employer] 04-06-2018 09:26-0500 Body weight 88.91 kg Joy Richardson ADJUSTER LEADER [employer] 04-06-2018 09:26-0500 Diastolic blood pressure 84 mm[Hg] Joy Mckinneyarik ADJUSTER LEADER [employer] Comment on above: Patient Position: Sitting; Cuff Location : Left Arm; Cuff Size: Standard 04-06-2018 09:26-0500 Heart rate 70 /min Joy Mckinneyarik ADJUSTER LEADER [employer] Comment on above: Pattern: Regular 04-06-2018 09:26-0500 Systolic blood pressure 143 mm[Hg] Joy Mckinneyarik ADJUSTER LEADER [employer] Comment on above: Patient Position: Sitting; Cuff Location : Left Arm; Cuff Size: Standard 02-20-2017 14:13-0500 Body height 170.18 cm Joy Wearik ROY [employer] 02-20-2017 14:13-0500 Body mass index (BMI) [Ratio] 30.7 kg/m2 Joy Mckinneyarik [facility] [employer] [employer] 02-20-2017 14:13-0500 Body surface area Derived from formula 2 m2 Joy Wearik ADJUSTER LEADER [employer] 02-20-2017 14:13-0500 Body weight 88.91 kg Joy Mckinneyvitorenee ADJUSTER LEADER [employer] 02-20-2017 14:13-0500 Diastolic blood pressure 83 mm[Hg] Joy Wearik ADJUSTER LEADER [employer] Comment on above: Patient Position: Sitting; Cuff Location : Left Arm; Cuff Size: Standard 02-20-2017 14:13-0500 Heart rate 76 /min Joy Wevitoerd ADJUSTER LEADER [employer].; [employer]. Comment on above: Pattern: Regular 02-20-2017 14:13-0500 Systolic blood pressure 170 mm[Hg] Joy Debra ROY [employer].; [employer]. Comment on above: Patient Position: Sitting; Cuff Location : Left Arm; Cuff Size: Standard 02-10-2017 11:130500 Body height 171.45 cm Alvin J López PA-C Work Phone: [employer].; [employer]. 02-10-2017 11:13-0500 Body mass index (BMI) [Ratio] 30.55 kg/m2 Alvin J López PA-C Work Phone: [employer].; [employer]. 02-10-2017 11:13-0500 Body surface area Derived from formula 2.02 m2 Alvin J López PA-C Work Phone: [employer].; [employer]. 02-10-2017 11:13-0500 Body weight 89.81 kg Alvin J López PA-C Work Phone: [employer].; [employer]. 02-10-2017 11:13-0500 Diastolic blood pressure 90 mm[Hg] Alvin J López PA-C Work Phone: [employer].; [employer]. Comment on above: Patient Position: Sitting; Cuff Location : Left Arm; Cuff Size: Standard 02-10-2017 11:13-0500 Heart rate 76 /min Alvin J López PA-C Work Phone: [employer].; [employer]. Comment on above: Pattern: Regular 02-10-2017 11:13-0500 Systolic blood pressure 154 mm[Hg] Alvin J López PA-C Work Phone: [employer].; [employer]. Comment on above: Patient Position: Sitting; Cuff Location : Left Arm; Cuff Size: Standard 07-22-2016 08:15-0400 Body height 172.72 cm Alvin Shahid López PA-C Work Phone: [employer]; [employer]. 07-22-2016 08:15-0400 Body mass index (BMI) [Ratio] 27.82 kg/m2 Alvin Shahid López PA-C Work Phone: [employer].; [employer]. 07-22-2016 08:15-0400 Body surface area Derived from formula 1.97 m2 Alvin Shahid López PA-C Work Phone: [employer].; [employer]. 07-22-2016 08:15-0400 Body weight 83.01 kg Alvin Shahid López PA-C Work Phone: [employer]; [employer]. 07-22-2016 08:15-0400 Diastolic blood pressure 76 mm[Hg] Alvin Shahid López PA-C Work Phone: [employer]; [employer]. Comment on above: Patient Position: Sitting; Cuff Location : Left Arm; Cuff Size: Standard 07-22-2016 08:15-0400 Heart rate 82 /min Alvin Kerner PA-C Work Phone: [employer]; [employer]. Comment on above: Pattern: Regular 07-22-2016 08:15-0400 Systolic blood pressure 144 mm[Hg] Alvin Shahid López PA-C Work Phone: [employer]; [employer]. Comment on above: Patient Position: Sitting; Cuff Location : Left Arm; Cuff Size: Standard 01-18-2016 09:49-0500 Body height 172.72 cm Vlad Mondragon NP-Shad Work Phone: [employer].; [employer]. 01-18-2016 09:49-0500 Body mass index (BMI) [Ratio] 28.89 kg/m2 Vlad P Giancarlo [employer]-C Work Phone: [employer]; [employer]. 01-18-2016 09:49-0500 Body surface area Derived from formula 2 m2 Vlad Mondragon [employer]-C Work Phone: [employer].; [employer]. 01-18-2016 09:49-0500 Body temperature 99 [degF] Vlad Mondragon [employer]-C Work Phone: [employer].; [employer]. Comment on above: Method: Tympanic 01-18-2016 09:49-0500 Body weight 86.18 kg Vlad Mondragon [employer]C Work Phone: [employer]; [employer]. 01-18-2016 09:49-0500 Diastolic blood pressure 82 mm[Hg] Vladtaylor Mondragon [employer]-C Work Phone: [employer]; [employer]. Comment on above: Patient Position: Sitting; Cuff Location : Left Arm; Cuff Size: Standard 01-18-2016 09:49-0500 Heart rate 69 /min Vlad Mondragon [employer]C Work Phone: [employer]; [employer]. Comment on above: Pattern: Regular 01-18-2016 09:49-0500 Inhaled oxygen concentration 20 % Vlad P Giancarlo [employer] Work Phone: [employer]; [employer]. Comment on above: Room air 01-18-2016 09:49-0500 Inhaled oxygen concentration 21 % Vlad Klaudia Giancarlo [employer]-C Work Phone: [employer]; [employer]. Comment on above: Room air 01-18-2016 09:49-0500 SaO2% (BldA) [Mass fraction] 99 % Vlad P Giancarlo [employer]-C Work Phone: [employer]; [employer]. 01-18-2016 09:49-0500 Systolic blood pressure 150 mm[Hg] Vlad Mondragon [employer]-C Work Phone: [facility] [employer]. Comment on above: Patient Position: Sitting; Cuff Location : Left Arm; Cuff Size: Standard 07-20-2015 17:06-0400 Body weight 88.91 kg Cher Harris ADJUSTER LEADER [facility] [employer]. 07-20-2015 17:06-0400 Diastolic blood pressure 84 mm[Hg] Cher Harris LPN [place] [employer] [facility].; [employer]. Comment on above: Patient Position: Sitting; Cuff Location : Left Arm; Cuff Size: Standard 07-20-2015 17:06-0400 Heart rate 77 /min Cher Harris ADJUSTER LEADER [facility] [employer]; [employer]. Comment on above: Pattern: Regular 07-20-2015 17:06-0400 Systolic blood pressure 155 mm[Hg] Cher Harris ADJUSTER LEADER [place] [employer] [facility].; [employer]. Comment on above: Patient Position: Sitting; Cuff Location : Left Arm; Cuff Size: Standard 01-19-2015 16:57-0500 Body weight 89.81 kg Alvin López PA-C Work Phone: [place] [employer] [facility].; [employer]. 01-19-2015 16:57-0500 Diastolic blood pressure 89 mm[Hg] Alvin López PA-C Work Phone: [place] [employer]. Comment on above: Patient Position: Sitting; Cuff Location : Left Arm; Cuff Size: Standard 01-19-2015 16:57-0500 Heart rate 68 /min Alvin López PA-C Work Phone: [employer].; [employer]. Comment on above: Pattern: Regular 01-19-2015 16:57-0500 Systolic blood pressure 163 mm[Hg] Alvin Kerner PA-C Work Phone: [employer].; [employer]. Comment on above: Patient Position: Sitting; Cuff Location : Left Arm; Cuff Size: Standard 12-19-2014 13:100400 Body height 172.72 cm Joy Debra ROY [place] [employer] [facility] [employer] 12-19-2014 13:10-0400 Body mass index (BMI) [Ratio] 30.87 kg/m2 Joy Debra ROY [facility] [employer] [facility] 12-19-2014 13:10-0400 Body surface area Derived from formula 2.06 m2 Joydevante Richardson LPN [facility] [employer] [facility], [employer] 12-19-2014 13:10-0400 Body weight 92.08 kg Joy Wearik ADJUSTER LEADER [place] [employer] [facility], [facility].; [employer], [employer] 12-19-2014 13:10-0400 Diastolic blood pressure 93 mm[Hg] Joydevante Richardson [facility] [employer] [facility], [employer] Comment on above: Patient Position: Sitting; Cuff Location : Left Arm; Cuff Size: Standard 12-19-2014 13:10-0400 Heart rate 84 /min Joydevante Richardson LPN [facility] [employer] [facility] [employer]. Comment on above: Pattern: Regular 12-19-2014 13:10-0400 Systolic blood pressure 172 mm[Hg] Joy Debra ROY [employer] [facility], [facility], [employer] Comment on above: Patient Position: Sitting; Cuff Location : Left Arm; Cuff Size: Standard Encounters Encounter Date Encounter Type Care Provider Facility Start: 10-31-2024 End: 10-31-2024 Office outpatient visit 15 minutes Alvin López PA-C Work Phone: [employer]. Start: 10-29-2024 End: 10-29-2024 Historical Summary Alvin López PA-C Work Phone: [employer]. Start: 09-20-2024 End: 09-20-2024 Office outpatient visit 15 minutes Alvin López PA-C Work Phone: [employer]. Start: 07-04-2024 End: 07-04-2024 ambulatory Alvin López PA Facility:[facility] Start: 06-05-2024 End: 06-05-2024 Orders Alvin López PA-C Work Phone: [employer]. Start: 06-03-2024 End: 06-03-2024 Orders Alvin López PA-C Work Phone: [employer]. Start: 05-31-2024 End: 05-31-2024 ambulatory Alvin López PA Work Phone: [facility] Work Phone: Start: 05-31-2024 End: 05-31-2024 Patient encounter procedure Alvin López PA -Ultrasound, [facility] Work Phone: Start: 05-31-2024 End: 05-31-2024 ambulatory Alvin López PA Facility:[facility] Start: 05-27-2024 End: 05-27-2024 Office outpatient visit 15 minutes Alvin López PA-C Work Phone: [employer] Start: 05-24-2024 End: 05-24-2024 Orders Alvin López PA-C Work Phone: [employer] Start: 04-05-2023 End: 04-05-2023 Patient encounter procedure Alvin López PA-C Work Phone: [employer]. Start: 04-05-2023 Follow-up encounter Alvin Blandon lmer PA-C Work Phone: [employer] Start: 11-25-2022 End: 11-25-2022 ambulatory ALVIN LÓPEZ [facility] Start: 06-30-2022 End: 06-30-2022 Orders Alvin López PA-C Work Phone: [employer] Start: 06-30-2022 End: 06-30-2022 Office outpatient visit 25 minutes Alvin López PA-C Work Phone: [employer] Start: 01-21-2022 End: 01-21-2022 ambulatory ALVIN LÓPEZ [facility] Start: 01-07-2022 End: 01-07-2022 Orders Alvin López PA-C Work Phone: [employer]. Start: 09-02-2021 End: 09-02-2021 Orders Alvin BLANDON-C Work Phone: [employer] Start: 08-11-2021 End: 08-11-2021 Patient encounter procedure [facility]-Ultrasound, [facility] Start: 08-05-2021 End: 08-05-2021 Manual pelvic examination Alvin BLANDON-C Work Phone: [employer]; [employer]. Start: 08-05-2021 End: 08-05-2021 Patient encounter procedure Alvin López PA-C Work Phone: [employer] Start: 07-28-2021 End: 07-28-2021 Patient encounter procedure Alvin López PA-C Work Phone: [employer]. Start: 07-23-2021 End: 07-23-2021 Telephone follow-up Alvin López PA-C Work Phone: [employer]. Start: 07-31-2020 End: 07-31-2020 Orders Alvin López PA-C Work Phone: [employer] Start: 07-22-2020 End: 07-22-2020 Patient encounter procedure Alvin López PA-C Work Phone: [employer]. Start: 07-22-2020 End: 07-22-2020 Patient encounter status Alvin López PA-C Work Phone: [employer]; [employer]. Start: 09-02-2019 End: 09-02-2019 Historical Summary Alvin López PA-C Work Phone: [employer]. Start: 07-26-2019 End: 07-26-2019 Orders Alvin López PA-C Work Phone: [employer]. Start: 07-26-2019 End: 07-26-2019 Patient encounter procedure Joy Mckinneyarik ROY [employer]. Start: 09-24-2018 End: 09-24-2018 Medication Alvin López PA-C Work Phone: [employer]. Start: 04-06-2018 End: 04-06-2018 Patient encounter procedure Joy Debra ROY [employer].; [employer]. Start: 04-06-2018 End: 04-06-2018 Periodic preventive med est patient 40-64yrs Alvin López PA-C Work Phone: [employer]. Start: 03-07-2018 End: 03-07-2018 Orders Alvin López PA-C Work Phone: [employer]. Start: 03-07-2018 End: 03-07-2018 Historical Summary Alvin Kerner PA-C Work Phone: [employer]. Start: 06-03-2017 End: 06-03-2017 Orders Alvin López PA-C Work Phone: [employer]. Start: 04-26-2017 End: 04-26-2017 Medication Alvin López PA-C Work Phone: [employer]. Start: 04-07-2017 End: 04-07-2017 Orders Alvin López PA-C Work Phone: [employer]. Start: 04-03-2017 End: 04-03-2017 Orders Alvin López PA-C Work Phone: [employer]. Start: 04-01-2017 End: 04-03-2017 Orders Alvin López PA-C Work Phone: [employer]. 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 Start: 02-20-2017 End: 02-22-2017 Periodic preventive med est patient 40-64yrs Alvin Kerner PA-C Work Phone: [employer]. Start: 02-10-2017 End: 02-10-2017 Office outpatient visit 15 minutes Alvin Kerner PA-C Work Phone: [employer]. Start: 07-22-2016 End: 07-22-2016 Office outpatient visit 15 minutes Alvin Kerner PA-C Work Phone: [employer]. Start: 01-18-2016 End: 01-18-2016 Patient encounter procedure Alvin Kerner PA-C Work Phone: [employer]. Start: 07-20-2015 End: 07-26-2015 Patient encounter procedure Alvin Kerner PA-C Work Phone: [employer]. Start: 01-19-2015 End: 01-21-2015 Patient encounter procedure Alvin López PA-C Work Phone: [employer]. Start: 12-19-2014 End: 12-19-2014 Patient encounter procedure Alvin Kerner PA-C Work Phone: [employer] [facility] Manual pelvic examination Brigitte Mosqueda LPN [facility] [employer] Manual pelvic examination Delia Fisher LPN [employer] [facility] [employer]. Manual pelvic examination Brigitte Mosqueda LPN [facility] [employer] Manual pelvic examination Delia Fisher LPN [facility] [employer]. Manual pelvic examination Brigitte Mosqueda LPN [facility] [employer] Patient encounter status Alvin López PA-C [facility] Phone: [facility].; [facility]. Procedures Date Procedure Procedure Detail Performing Clinician Start: 09-20-2024 End: 10-02-2024 Ecg routine ecg w/least 12 lds w/i&r Alvin Kerner PA-C Work Phone: Comment on above: Sinus rhythm Start: 05-31-2024 US scan of thyroid Annamarie López PA Work Phone: Start: 05-24-2024 End: 08-21-2024 Us soft tissue head & neck real time imge docm Alvin Kerner PA-C Work Phone: Start: 06-30-2022 End: 11-28-2022 Screening digital breast tomosynthesis bi Alvin Shahid López PA-C Work Phone: Start: 01-07-2022 End: 01-21-2022 Us breast uni real time with image limited Alvin Kerner PA-C Work Phone: Start: 08-11-2021 US scan of thyroid Start: 08-05-2021 End: 08-05-2021 Depression screening Alvin Shahid López PA -C Work Phone: Start: 08-05-2021 End: 08-05-2021 Scr dep neg, no plan reqd Alvin Shahid Palm er PA-C Work Phone: Start: 08-05-2021 End: 09-01-2021 Screening digital breast tomosynthesis bi Alvin Shahid López PA-C Work Phone: Start: 07-22-2020 End: 07-22-2020 Depression screening Alvin Shahid López PA -C Work Phone: Start: 07-22-2020 End: 07-22-2020 Scr dep neg, no plan reqd Alvin Shahid Palm er PA-C Work Phone: Start: 07-22-2020 End: 07-31-2020 Us soft tissue head & neck real time imge docm Alvin Shahid López PA-C Work Phone: Start: 05-07-2020 End: 05-07-2020 Screening mammography Brigitte Mosqueda LPN Comment on above: Normal. right spot-a bnormalright u/s normal 04/13/2017 Start: 08-22-2019 End: 08-22-2019 Cologuard Brigitte Kinsey Jaylin JACOBSEN N Comment on above: Normal. negative Start: 08-22-2019 End: 08-22-2019 FIT DNA test Brigitte Kinsey Jaylin JACOBSEN N Comment on above: Cologuard Start: 07-26-2019 End: 07-26-2019 Depression screening Alvin Zehra López PA -C Work Phone: Start: 07-26-2019 End: 09-02-2019 Oncology colorectal screening cesar 10 dna markrs Alvin Zehra López PA-C Work Phone: Start: 07-26-2019 End: 07-26-2019 Scr dep neg, no plan reqd Alvin Shahid Concha er PA-C Work Phone: Start: 07-26-2019 End: 05-07-2020 Screening mammography bi 2-view breast inc cad Alvin Zehra Kerner PA-C Work Phone: Start: 04-06-2018 End: 04-06-2018 Depression screening Alvin Zehra López PA -C Work Phone: Start: 04-06-2018 End: 04-06-2018 Lab findings surveillance Brigitte Tio lagunas LPN Comment on above: cmp 97 Start: 04-06-2018 End: 04-06-2018 Scr dep neg, no plan reqd Alvin Shahid Concha er PA-C Work Phone: Start: 04-06-2018 End: 04-06-2018 Thyrotropin [Units/volume] in Serum or Plasma Brigitte Mosqueda LPN Comment on above: 0.46 Start: 04-07-2017 End: 04-13-2017 Us breast uni real time with image complete Alvin Shahid Rene PA-C Work Phone: Comment on above: she is already sched uled for 04/13/17 for the right, but Alvin López would also like her left breast to be check. Start: 04-01-2017 End: 04-01-2017 Lipid panel Brigitte Kinsey Jaylin JACOBSEN N Comment on above: Normal. Start: 02-20-2017 End: 02-20-2017 Body mass index documented Alvin Cat paddy PA-C Work Phone: Start: 02-20-2017 End: 02-20-2017 Flu imm no admin doc cristi Alvin Shahid Palme r PA-C Work Phone: Start: 02-20-2017 End: 02-20-2017 Microscopic examination of cervical Papanicolaou smear Brigitte Tio Mosqueda LPN Comment on above: Normal. 5 yr Start: 02-20-2017 End: 02-20-2017 Most recent diastolic blood pressure 80-89 mm hg Alvin Shahid López PA-C Work Phone: Start: 02-20-2017 End: 02-20-2017 Most recent systolic blood pres>/equal 140 mm hg Alvin Shahid López PA-C Work Phone: Start: 02-20-2017 End: 04-07-2017 Screening mammography bi 2-view breast inc cad Alvin Shahid López PA-C Work Phone: Start: 02-10-2017 End: 02-10-2017 Body mass index documented Alvin Shahid Pal paddy PA-C Work Phone: Start: 02-10-2017 End: 02-10-2017 Flu imm no admin doc cristi Alvin Shahid Palme r PA-C Work Phone: Start: 02-10-2017 End: 02-10-2017 Most recent diastol blood pres >/equal 90 mm hg Alvin Shahid López PA-C Work Phone: Start: 02-10-2017 End: 02-10-2017 Most recent systolic blood pres>/equal 140 mm hg Alvin Shahid López PA-C Work Phone: Start: 07-20-2015 End: 08-10-2015 Doppler echocard pulse wave w/spectral display Alvin Shahid López PA-C Work Phone: Start: 12-19-2014 End: 12-19-2014 No Known Past Surgical History Alvin López PA-C Work Phone: Start: 12-19-2014 End: 01-05-2015 Ecg routine ecg w/least 12 lds i&r only Alvin López PA-C Work Phone: Comment on above: Normal sinus rhythm. SFB read. Most Recent Cardio Report Me leslie López PA-C Work Phone: Comment on above: No Cardiology record s 10/29/2024 Ophthalmic examinati on and evaluation Brigitte Mosqueda LPN Comment on above: Normal. summer 2016 Plan of Treatment Date Care Activity Detail Author Start: 11-18-2024 Nursing evaluation o f patient and report Medical; Nurse visit - non fasting labs and bp check [facility] Start: 18-Nov-2024 16:20-04:00 NURSE, FLOAT Appointment Request [facility] Start: 11-14-2024 Assay of free thyroxine T4 SADA E (50877) Start: 14-Nov-2024 Request [facility]; [facility] Start: 11-14-2024 Assay of thyroid stimulating hormone tsh TSH (THYROID STIMULATING HORMONE) (87276) Start: 14-Nov-2024 Request [facility]; [facility]. Start: 11-14-2024 Basic metabolic pane l calcium total BMP w/ GFR (F) (11303) Start: 14-Nov-2024 Request [facility]; [facility]. Start: 10-31-2024 Oncology colorectal screening cesar 10 dna markrs COLOGUARD COLON CANCER SCREENING USING STOOL DNA AT POINT OF CARE (19818) Start: 31-Oct-2024 Intent [facility] Start: 10-31-2024 Screening digital br east tomosynthesis bi Mammogram 3D (tomosynthesis), bilateral (25494) Start: 31-Oct-2024 Intent [facility] Start: 10-31-2024 Patient encounter procedure Medical; EXTENDED RTN - rtn..blood work?? [facility]. Start: 31-Oct-2024 07:50-04:00 RYANNE López Appointment Request [facility]. Start: 09-20-2024 End: 09-23-2024 Ecg routine ecg w/least 12 lds w/i&r [facility] Comment on above: Sinus rhythm Start: 05-27-2024 Assay of thyroid stimulating hormone tsh TSH (THYROID STIMULATING HORMONE) (14991) Start: 27-May-2024 15:57-04:00 Request [facility]; [facility]. Start: 05-27-2024 Assay of free thyroxine T4 SADA E (23075) Start: 27-May-2024 15:57-04:00 Request [facility]; [facility] Start: 05-27-2024 Basic metabolic pane l calcium total BMP w/ GFR (F) (68536) Start: 27-May-2024 15:57-04:00 Request [facility]; [employer]. Start: 05-27-2024 Blood count complete auto&auto difrntl wbc CBC, PLATELETS & AUT DIFF (F) (97041) Start: 27-May-2024 15:57-04:00 Request [facility]; [facility]. Start: 05-27-2024 Patient encounter procedure Medical; EXTENDED RTN - ck thyroid per MJP (get new ins) [facility] Start: 27-May-2024 15:50-04:00 RYANNE Urban Appointment Request [facility] Start: 05-24-2024 Us soft tissue head & neck real time imge [facility] Thyroid Ultrasound (22717) Start: 24-May-2024 Intent [facility] Start: 04-05-2023 Assay of thyroid stimulating hormone tsh TSH W/ REFL FREE T4 (61285,81057) (43967) Start: 05-Apr-2023 10:28 Request [employer] [facility]; [employer]. Start: 04-05-2023 Basic metabolic pane l calcium total BMP w/ GFR (F) (93608) Start: 05-Apr-2023 10:28 [facility] Start: 08-05-2021 Provider Instruction s for Treatment [facility] HM Issues, 50-64 female Indication: Encounter for routine pelvic examination, 50-64 (Renamed from Encounter for routine gynecological examination) Start: 05-Aug-2021 Instruction Type: Provider Instructions for Treatment [facility] [employer]; [facility] [employer]. Start: 07-22-2020 Provider Instruction s for Treatment [facility] HM Issues, 50-64 female Indication: Well adult exam Start: 22-Jul-2020 Instruction Type: Provider Instructions for Treatment [facility] Report; [facility] [employer] Start: 07-22-2020 TTE w or wo fol wcon,Doppler Echocardiogram, Complete with contrast per protocol if indicated ADULT (C8929) Start: 22-Jul-2020 Intent [facility] [employer]; [facility] Immunizations Immunization Date Immunization Notes Care Provider Lui patterson 02-20-2017 tetanus toxoid, redu brook diphtheria toxoid, and acellular pertussis vaccine, adsorbed Alvin López PA-C Work Phone: [facility] [employer] [facility]; [facility]. Comment on above: Site: Right DeltoidV IS Given: * Tdap (Tetanus, Diphtheria, Pertussis) (04/29/14) Payers Date Payer Category Payer Self-pay [id number] 2024 Self-pay [id number] 2024 Unknown [id number] 1970 Unknown [id number] 1970 Unknown [id number] Unknown [id number] Unknown Unknown [id number] [id number] [id number] Unknown [id number] [id number] [id number] Social History Date Type Detail Facility [facility] Work Phone: Start: 1970 Sex Assigned At Female [facility] Caffeine Use Caffeine Use [facility]; [facility] Tobacco Use: Tobacco Use: ; N ever smoker. [facility]; [facility] Never smoked tobacco [facility]; [facility] Work Phone: Tobacco smoking stat [facility] Unknown if ever smoked [facility] Work Phone: Start: 06-04-2024 Sex Female (finding) [facility] Radiology Diagnostic study note 06-02-2024 Note Date & Type Note Facility 06-02-2024 Radiology Diagnostic study note [facility] Imaging Services [address] [place] [id number] Thyroid MR#: [id number] Acct: [id number] Name: REBECCA CAMPBELL Rep #: [id number] : 1970 F 53 From: Pet er Peer DO PCP: DAYSI Caldwell Status: REG CLI Study:Thyroid Date of Exam: 05/31/24 Exam# [id number] Ordering Dr: Tio López PROCEDURE: THYROID 05/31/2024 REASON FOR EXAM: THYROID NODULES Nodules seen on prior exam of August 11, 2021 TECHNIQUE: Real-time ultrasound evaluation of the thyroid was performed with real-time and static grayscale imaging COMPARISON: Ultrasound thyroid 08/11/2021 PROCEDURE: Right thyroid ultrasound. Previous imaging was reviewed. FINDINGS: The thyroid gland, right lobe, measures 6.0 cm length by 2.7 cm height by 2 point 9 cm wide. The left lobe of the gland measures 6.0 cm by 2.8 cm height by 2.4 cm width. The isthmus is mildly thickened at 4.6 mm. A right thyroid nodule is identified measuring 2.7 cm by 2 point 1 cm height. A right lobe nodule is identified measuring 3.1 cm L x 2.2 cm x 1.8 cm W. the nodule is almost completely solid (2), isoechoic (1), wider than tall (0). Is also smoothly marginated with no echogenic foci (0). A left thyroid nodule is identified measuring 3.1 cm x 2.2 cm x 1.8 cm. Few small cystic areas are seen, but the nodule is predominantly solid (2 points), isoechoic (1), wider than tall (0), smoothly marginated (0) and no echogenic foci (0). The nodule is TR 3, mildly suspicious. FNA biopsy is recommended for all TR 3 nodules greater than or equal to 2.5 cm diameter (maximum diameter). Also in the left lobe is a 2.1 by 1 point 2 x 1.6 cm nodule which is mixed cystic and solid (1 point), isoechoic (1), wider than tall (0), smooth margins (0), no echogenic foci (0). TR 2, not suspicious. A left lobe nodule measures 0.9 cm x 1.2 cm 1.0 cm and is predominantly cystic (0), anechoic (0), wider than tall (0), smoothly marginated (0) and no echogenic foci (0). A right lobe nodule is partly solid and mostly cystic measuring 2.7 cm by 2.1 cmheight by 2.8 cm width. Margins appear smooth. Portions of the nodule appear spongiform. The nodules predominantly anechoic, wider than tall, smooth margination and no echogenic foci, total of 0 points, TR 1 benign. Another nodule identified in the right lobe is 2.3 cm L by 1.4 cm height by 1.6 cm with. Composition is spongiform. 0 points, TR 1. Another right lobe nodule is small measuring 1.3 cm by 0.8 cm height by 1.1 cm with. This nodule is either T1 benign or T2 not suspicious. US/Thyroid IMPRESSION: Multinodular goiter. A right lobe nodule is identified measuring 3.1 cm L x 2.2 cm x 1.8 cm W. the nodule is almost completely solid (2), isoechoic (1), wider than tall (0). Is also smoothly marginated with no echogenic foci (0). A left lobe nodule measures 2.7 x 2.8 x 2.1 cm. This represents an increase compared to the prior study measure 2.2 x 1.9 x 1.7 cm. The nodule is TR 3, mildly suspicious and has 1 dimension equal to or greater than 2.5 cm for which FNA biopsy is recommended. Reading [facility] CC: DAYSI Caldwell ~ Chronometer Tester: Signed [facility] Evaluation note Note Date & Type Note Facility Evaluation note No assessment information availa ble [facility] Work Phone: Reason for referral (narrative) Note Date & Type Note Facility Reason for referral (narrative) No reason for referral information available [facility] Work Phone: Chief Complaint and Reason for Visit Chief Complaint MULTINODULAR GOITER Chief Complaint Admit Date THYROID NODULE May 31, 2024 5:3 8pm Family History No Family History Records Found Relationship Condition Age at Onset Recorded Date/T airam sister Disorder of thyroid Unknown Hypertension Unknown Cardiac disease Unknown Myocardial infarction Unknown arthritis-mother Status:Active cancer-aunt and maternal grandpa Status:Active Comments:aunt-lung,brainmaternal grandfather esophagus Coronary Artery Disease Status:Active Comments :Sister. [place] at age 47 Diabetes Mellitus Type II Status:Active Commen ts:Paternal Grandmother. Hypertension Status:Active Comments:Sister. Brother. Father. Mother. thyroid diseases-sisters Status:Active arthritis-mother Status:Active cancer-aunt and maternal grandpa Status:Active Comments:aunt-lung,brainmaternal grandfather esophagus Coronary Artery Disease Status:Active Comments :Sister. [place] at age 47 Diabetes Mellitus Type II Status:Active Commen ts:Paternal Grandmother. Hypertension Status:Active Comments:Sister. Brother. Father. Mother. thyroid diseases-sisters Status:Active arthritis-mother Status:Active cancer-aunt and maternal grandpa Status:Active Comments:aunt-lung,brainmaternal grandfather esophagus Coronary Artery Disease Status:Active Comments :Sister. [place] at age 47 Diabetes Mellitus Type II Status:Active Commen ts:Paternal Grandmother. Hypertension Status:Active Comments:Sister. Brother. Father. Mother. thyroid diseases-sisters Status:Active arthritis-mother Status:Active cancer-aunt and maternal grandpa Status:Active Comments:aunt-lung,brainmaternal grandfather esophagus Coronary Artery Disease Status:Active Comments :Sister. [place] at age 47 Diabetes Mellitus Type II Status:Active Commen ts:Paternal Grandmother. Hypertension Status:Active Comments:Sister. Brother. Father. Mother. thyroid diseases-sisters Status:Active arthritis-mother Status:Active cancer-aunt and maternal grandpa Status:Active Comments:aunt-lung,brainmaternal grandfather esophagus Coronary Artery Disease Status:Active Comments :Sister. [place] at age 47 Diabetes Mellitus Type II Status:Active Commen ts:Paternal Grandmother. Hypertension Status:Active Comments:Sister. Brother. Father. Mother. thyroid diseases-sisters Status:Active arthritis-mother Status:Active cancer-aunt and maternal grandpa Status:Active Comments:aunt-lung,brainmaternal grandfather esophagus Coronary Artery Disease Status:Active Comments :Sister. [place] at age 47 Diabetes Mellitus Type II Status:Active Commen ts:Paternal Grandmother. Hypertension Status:Active Comments:Sister. Brother. Father. Mother. thyroid diseases-sisters Status:Active arthritis-mother Status:Active cancer-aunt and maternal grandpa Status:Active Comments:aunt-lung,brainmaternal grandfather esophagus Coronary Artery Disease Status:Active Comments :Sister. [place] at age 47 Diabetes Mellitus Type II Status:Active Commen ts:Paternal Grandmother. Hypertension Status:Active Comments:Sister. Brother. Father. Mother. thyroid diseases-sisters Status:Active arthritis-mother Status:Active cancer-aunt and maternal grandpa Status:Active Comments:aunt-lung,brainmaternal grandfather esophagus Coronary Artery Disease Status:Active Comments :Sister. [place] at age 47 Diabetes Mellitus Type II Status:Active Commen ts:Paternal Grandmother. Hypertension Status:Active Comments:Sister. Brother. Father. Mother. thyroid diseases-sisters Status:Active arthritis-mother Status:Active cancer-aunt and maternal grandpa Status:Active Comments:aunt-lung,brainmaternal grandfather esophagus Coronary Artery Disease Status:Active Comments :Sister. [place] at age 47 Diabetes Mellitus Type II Status:Active Commen ts:Paternal Grandmother. Hypertension Status:Active Comments:Sister. Brother. Father. Mother. thyroid diseases-sisters Status:Active arthritis-mother Status:Active cancer-aunt and maternal grandpa Status:Active Comments:aunt-lung,brainmaternal grandfather esophagus Coronary Artery Disease Status:Active Comments :Sister. [place] at age 47 Diabetes Mellitus Type II Status:Active Commen ts:Paternal Grandmother. Hypertension Status:Active Comments:Sister. Brother. Father. Mother. thyroid diseases-sisters Status:Active arthritis-mother Status:Active cancer-aunt and maternal grandpa Status:Active Comments:aunt-lung,brainmaternal grandfather esophagus Coronary Artery Disease Status:Active Comments :Sister. [place] at age 47 Diabetes Mellitus Type II Status:Active Commen ts:Paternal Grandmother. Hypertension Status:Active Comments:Sister. Brother. Father. Mother. thyroid diseases-sisters Status:Active arthritis-mother Status:Active cancer-aunt and maternal grandpa Status:Active Comments:aunt-lung,brainmaternal grandfather esophagus Coronary Artery Disease Status:Active Comments :Sister. [place] at age 47 Diabetes Mellitus Type II Status:Active Commen ts:Paternal Grandmother. Hypertension Status:Active Comments:Sister. Brother. Father. Mother. thyroid diseases-sisters Status:Active arthritis-mother Status:Active cancer-aunt and maternal grandpa Status:Active Comments:aunt-lung,brainmaternal grandfather esophagus Coronary Artery Disease Status:Active Comments :Sister. [place] at age 47 Diabetes Mellitus Type II Status:Active Commen ts:Paternal Grandmother. Hypertension Status:Active Comments:Sister. Brother. Father. Mother. thyroid diseases-sisters Status:Active arthritis-mother Status:Active cancer-aunt and maternal grandpa Status:Active Comments:aunt-lung,brainmaternal grandfather esophagus Coronary Artery Disease Status:Active Comments :Sister. [place] at age 47 Diabetes Mellitus Type II Status:Active Commen ts:Paternal Grandmother. Hypertension Status:Active Comments:Sister. Brother. Father. Mother. thyroid diseases-sisters Status:Active arthritis-mother Status:Active cancer-aunt and maternal grandpa Status:Active Comments:aunt-lung,brainmaternal grandfather esophagus Coronary Artery Disease Status:Active Comments :Sister. [place] at age 47 Diabetes Mellitus Type II Status:Active Commen ts:Paternal Grandmother. Hypertension Status:Active Comments:Sister. Brother. Father. Mother. thyroid diseases-sisters Status:Active arthritis-mother Status:Active cancer-aunt and maternal grandpa Status:Active Comments:aunt-lung,brainmaternal grandfather esophagus Coronary Artery Disease Status:Active Comments :Sister. [place] at age 47 Diabetes Mellitus Type II Status:Active Commen ts:Paternal Grandmother. Hypertension Status:Active Comments:Sister. Brother. Father. Mother. thyroid diseases-sisters Status:Active arthritis-mother Status:Active cancer-aunt and maternal grandpa Status:Active Comments:aunt-lung,brainmaternal grandfather esophagus Coronary Artery Disease Status:Active Comments :Sister. [place] at age 47 Diabetes Mellitus Type II Status:Active Commen ts:Paternal Grandmother. Hypertension Status:Active Comments:Sister. Brother. Father. Mother. thyroid diseases-sisters Status:Active arthritis-mother Status:Active cancer-aunt and maternal grandpa Status:Active Comments:aunt-lung,brainmaternal grandfather esophagus Coronary Artery Disease Status:Active Comments :Sister. [place] at age 47 Diabetes Mellitus Type II Status:Active Commen ts:Paternal Grandmother. Hypertension Status:Active Comments:Sister. Brother. Father. Mother. thyroid diseases-sisters Status:Active arthritis-mother Status:Active cancer-aunt and maternal grandpa Status:Active Comments:aunt-lung,brainmaternal grandfather esophagus Coronary Artery Disease Status:Active Comments :Sister. [place] at age 47 Diabetes Mellitus Type II Status:Active Commen ts:Paternal Grandmother. Hypertension Status:Active Comments:Sister. Brother. Father. Mother. thyroid diseases-sisters Status:Active arthritis-mother Status:Active cancer-aunt and maternal grandpa Status:Active Comments:aunt-lung,brainmaternal grandfather esophagus Coronary Artery Disease Status:Active Comments :Sister. [place] at age 47 Diabetes Mellitus Type II Status:Active Commen ts:Paternal Grandmother. Hypertension Status:Active Comments:Sister. Brother. Father. Mother. thyroid diseases-sisters Status:Active arthritis-mother Status:Active cancer-aunt and maternal grandpa Status:Active Comments:aunt-lung,brainmaternal grandfather esophagus Coronary Artery Disease Status:Active Comments :Sister. [place] at age 47 Diabetes Mellitus Type II Status:Active Commen ts:Paternal Grandmother. Hypertension Status:Active Comments:Sister. Brother. Father. Mother. thyroid diseases-sisters Status:Active arthritis-mother Status:Active cancer-aunt and maternal grandpa Status:Active Comments:aunt-lung,brainmaternal grandfather esophagus Coronary Artery Disease Status:Active Comments :Sister. [place] at age 47 Diabetes Mellitus Type II Status:Active Commen ts:Paternal Grandmother. Hypertension Status:Active Comments:Sister. Brother. Father. Mother. thyroid diseases-sisters Status:Active arthritis-mother Status:Active cancer-aunt and maternal grandpa Status:Active Comments:aunt-lung,brainmaternal grandfather esophagus Coronary Artery Disease Status:Active Comments :Sister. [place] at age 47 Diabetes Mellitus Type II Status:Active Commen ts:Paternal Grandmother. Hypertension Status:Active Comments:Sister. Brother. Father. Mother. thyroid diseases-sisters Status:Active arthritis-mother Status:Active cancer-aunt and maternal grandpa Status:Active Comments:aunt-lung,brainmaternal grandfather esophagus Coronary Artery Disease Status:Active Comments :Sister. [place] at age 47 Diabetes Mellitus Type II Status:Active Commen ts:Paternal Grandmother. Hypertension Status:Active Comments:Sister. Brother. Father. Mother. thyroid diseases-sisters Status:Active arthritis-mother Status:Active cancer-aunt and maternal grandpa Status:Active Comments:aunt-lung,brainmaternal grandfather esophagus Coronary Artery Disease Status:Active Comments :Sister. [place] at age 47 Diabetes Mellitus Type II Status:Active Commen ts:Paternal Grandmother. Hypertension Status:Active Comments:Sister. Brother. Father. Mother. thyroid diseases-sisters Status:Active Summary Purpose Advance Directives No Advanced Directives Records FoundNo Advanced Directives Records FoundNo Advanced Directives Records Found Additional Source Comments Goals (unrecognized section and content) Goals may be documented in a n alternate sectionGoals may be documented in an alternate section INFORMATION SOURCE (unrecogn ized section and content) DATE CREATED AUTHOR 11/26/2022 [facility] DATE CREATED AUTHOR AUTHOR'S ORGANIZ ATION 08/24/2024 [facility] DATE CREATED AUTHOR AUTHOR'S ORGANIZ ATION 11/20/2024 [facility] [[email or web address] Diagnostic s Care Teams (unrecognized sec tion and content) Team Status: Active Member Role Status Dates DAYSI Fowler Primary Care Provider Active Team Status: Inactive Member Role Status Dates DAYSI Fowler Primary Care Provider Active Start: May 31, 2024 End: May 31, 2024 DAYSI Fowler Attending Provider Active Start: May 31, 2024 End: May 31, 2024 DAYSI Fowler Referring Provider Active Start: May 31, 2024 End: May 31, 2024 FOR RECORDS PERTAINING TO PATIENTS WHO ARE OR HAVE BEEN ENROLLED IN A CHEMICAL DEPENDENCY/SUBSTANCEABUSE PROGRAM, SOME INFORMATION MAY BE OMITTED. This clinical summary was aggregated from multiple sources. Caution should be exercised in using it in the provision of clinical care. This summary normalizes information from multiple sources, and as a consequence, information in this document may materially change the coding, format and clinical context of patient data. In addition, data may be omitted in some cases. CLINICAL DECISIONS SHOULD BE BASED ON THE PRIMARY CLINICAL RECORDS. [facility] [employer] provides no warranty or guarantee of the accuracy or completeness of information in this document.
[2024-12-06 23:18] VITALS: BMI 31.6
[2024-12-06 23:30] VITALS: BP 150/81; PULSE 64; RESP 16; TEMP 36.7; O2SAT 98
--- NOTE | 2024-12-06 23:36 | PCM.HP.STD ---
HPI - General General Date of Admission: 12/06/24 Date of Service: 12/06/24 Chief Complaint: Dyspnea, chest pain. HPI Narrative The patient is a 54 y/o Christian F w/ PMHx: HTN, Hx Multiple thyroid nodules status post previous biopsy consistent with cystic colloid nodule/benign follicular nodule with extensive cystic changes initially presents to the outside facility [facility] on 12/06/2024 with history of 2 weeks of persistent chest tightness diffuse with associated dyspnea primarily with exertion however it has worsened over the last 24-48 hrs with nausea without emesis and now radiation to the right shoulder prompting eventual outpatient ED evaluation. Patient notes that she has been having ongoing left neck discomfort worse with certain movements for the last several weeks. She notes the chest heaviness is primarily in the left upper chest rating it 3-4 out of severity and does have some radiation up to the left neck but more like a shooting pain. She notes that currently the right shoulder pain is completely resolved. Workup in the outside emergency room included afebrile, BP 163/87, respiratory rate 21, heart rate 67, 96% oxygenation, initial troponin 10.2 high-sensitivity, CMP with sodium 137, potassium 3.1, chloride 103, CO2 31.6, glucose 97, BUN/creatinine 21/0.87, GFR greater than 60, total bilirubin mildly elevated 1.5, AST/ALT 22/35, alk phos 73, D-dimer 387, CBC with WBC 6.4, hematin 14.2, MCV 89, platelet 228 without marked shift, CTA chest with no evidence of pulmonary embolism, noted right breast mass measuring 1.9 x 1.3 x 2.0 cm, follow-up repeat delta troponin 10.1, EKG with sinus rhythm with no acute evidence of ischemia. Discussed case with outside facility ED physician and patient is Christian and he is nervous about loss to care follow-up for outpatient stress testing thus requesting transfer for further evaluation on an inpatient basis. [facility] Medical History Multiple thyroid nodules Hypertension Heart murmur Home Medications ?Medication ?Instructions ?Recorded ?Last Taken ?Type amlodipine 5 mg tablet 5 mg PO QDAY 07/04/24 12/06/24 05:00 History [place]-3 12/06/24 12/05/24 21:00 History hydrochlorothiazide 25 mg tablet 25 mg PO DAILY 12/06/24 12/06/24 15:30 History lisinopril 40 mg tablet 40 mg PO DAILY 12/06/24 12/06/24 05:00 History magnesium BID 12/06/24 12/06/24 05:00 History Allergy/AdvReac Type Severity Reaction Status Date / Time No Known Allergies Allergy Verified 07/04/24 12:38 Family History (Updated 12/06/24 @ 23:[address] Mera Jolly MD) Sister Thyroid disorder Hypertension Heart disease Myocardial infarction Mother Hypertension Father Dementia Surgical History S/P fine needle aspiration (~08/2020) No significant past surgical history Social History household members: none Smoking Status: Never smoker alcohol intake: never substance use type: does not use ROS ROS Narrative Admission Review of Systems: CONSTITUTIONAL: No weight loss, fever, chills, + weakness or fatigue. HEENT: + L neck discomfort. Eyes: No visual loss, blurred vision, double vision or yellow sclerae. Ears, Nose, Throat: No hearing loss, sneezing, congestion, runny nose or sore throat. SKIN: No rash or itching, lesions, wounds. CARDIOVASCULAR: + Chest pain/tightness/heaviness. No palpitations, edema, orthopnea, syncopal events. RESPIRATORY: + Dyspnea primarily with exertion. No cough or sputum, wheezing, hemoptysis. GASTROINTESTINAL: No anorexia, nausea, vomiting or diarrhea, abdominal pain, melena, BRBPR. GENITOURINARY: No dysuria, frequency, urgency or retention. NEUROLOGICAL: No headache, dizziness, syncope, paralysis, ataxia, numbness or tingling in the extremities, focal weakness, change in bowel or bladder control, seizure. MUSCULOSKELETAL: + muscle, back pain, joint pain or stiffness. HEMATOLOGIC: No anemia, bleeding or bruising. LYMPHATICS: No enlarged nodes. No history of splenectomy. PSYCHIATRIC: No history of depression or anxiety. ENDOCRINOLOGIC: No reports of sweating, cold or heat intolerance. No polyuria or polydipsia. ALLERGIES: No history of asthma, hives, eczema or rhinitis. Vital Signs Vital Signs Vital Signs: Weight Weight: 208 lb 1.862 oz Body Mass Index (BMI) 31.6 Physical Exam Narrative Physical Examination: General: Awake, alert, oriented x 3 and cooperative, seated upright in the PCU bed, denies any current chest discomfort or dyspnea. Skin: Normal color, normal turgor, no icterus, no cyanosis except occasional abrasion, ecchymoses. HEENT: AT/NC, EOMI, PERRLA, MMM, no carotid bruits or JVD noted. Lungs: Mildly diminished, greater bases, appropriate effort, no rales, ronchi or wheezing. Heart: Regular rate and rhythm; no gallop, rub audible. Abdomen: Soft, obese, NTTP, ND, mildly hyperactive BS, no HSM. Extremities: No cyanosis, no clubbing, no significant distal pitting edema. Neurological: Patient awake, alert, oriented as noted, cognitive function intact; pupils equally reactive to light and accommodation, cranial nerves grossly normal, moving all 4 extremities, no focal deficits, strength mildly globally decreased. Psychiatric: Affect appears fatigued otherwise normal, no acute evidence of depressive or anxiety feelings. Assessment & Plan Assessment/Plan (1) Chest pain: PLAN: Plan The patient is a 54 y/o Christian F w/ PMHx: HTN, Hx Multiple thyroid nodules status post previous biopsy consistent with cystic colloid nodule/benign follicular nodule with extensive cystic changes initially presents to the outside facility [facility] on 12/06/2024 with history of 2 weeks of persistent chest tightness diffuse with associated dyspnea primarily with exertion however it has worsened over the last 2440 hrs. with nausea without emesis and now radiation to the right shoulder prompting eventual outpatient ED evaluation and eventually transfer to [facility] as direct admission on 12/06/24 for further cardiac evaluation. #1. Exertional dyspnea, chest pain: EKG in ED sinus rhythm with no acute evidence of ischemia with nonspecific changes, CTA chest with no evidence of pulmonary embolism, noted right breast mass measuring 1.9 x 1.3 x 2.0 cm, initial troponin high-sensitivity 10.1 and follow-up repeat delta troponin 10.1. Will admit to PCU, place on a monitored bed to assure no acute myocardial infarction with serial cardiac enzymes and EKGs. Magnesium level requested. If serial repeat cardiac enzymes remain similar we will plan a.m. cardiac stress testing. Echocardiogram also requested. Presentation may be in large part secondary to #2, will need further workup outpatient. ASA, NG, morphine. #2. Incidentally noted right breast mass of unclear significance: Outpatient facility ED with CTA of the chest given elevated D-dimer with a right breast mass measuring 1.9 x 1.3 x 2.0 cm, will need follow-up at discharge and may follow-up with Dr. Ramon given she is already established for her underlying thyroid nodule history. #3. Hypertension: Continue home regimen including amlodipine, lisinopril, PRN hydralazine. #4. Hx Multiple thyroid nodules: Patient status post previous biopsy consistent with cystic colloid nodule/benign follicular nodule with extensive cystic changes, last visit noted 07/04/[address] Ramon General Surgery, TSH, free T4 requested. #5. DVT prophylaxis: Lovenox. #6. CODE status: Full Code. Charges/Coding Visit Charges Inpatient E&M: 96782 Init Hosp L2
[2024-12-07] MEDS: 0.9% Normal Saline (1000mL) 1,000 ML 100 ML IV (00:06)
[2024-12-07 01:07] LABS: Magnesium 2.2 mg/dL (1.5-2.2)
[2024-12-07 01:39] LABS: Troponin T High Sensitivity 7 ng/L (<=14)
[2024-12-07 03:31] LABS: Troponin T High Sens 2 HR 7 ng/L (<=14)
[2024-12-07 04:56] LABS: Hematocrit 41.1 % (37-47); Hemoglobin 14.0 g/dL (12.0-15.0); Immature Granulocytes Count 0.010 X10^3/uL (0.0-0.0); Mean Corp Hgb Conc 34.1 g/dL (32-36); Mean Corpuscular Volume 90.5 fL (81-99); Mean Platelet Vol. 9.8 fl (6.2-12.0); NRBC Flagged by Analyzer 0 % (0-5); Platelet Count 230 K/mm3 (150-450); RBC Distribution Width CV 11.9 % (11.6-14.6); RBC Distribution Width SD 39.6 fl (35.1-43.9); Red Blood Count 4.54 M/mm3 (4.2-5.4); White Blood Count 5.4 K/mm3 (4.4-11.0)
[2024-12-07 05:10] VITALS: BP 152/81; PULSE 62; RESP 16; TEMP 36.8; O2SAT 97
[2024-12-07] MEDS: Aspirin E.C. 81 MG Tablet PO (05:14)
[2024-12-07 05:55] LABS: Troponin T High Sens 4 HR 6 ng/L (<=14)
--- NOTE | 2024-12-07 05:55 | EKG12_ITS ---
Test Reason : AM EKG Blood Pressure : */* mmHG Vent. Rate : 60 BPM Atrial Rate : 60 BPM P-R Int : 194 ms QRS Dur : 94 ms QT Int : 432 ms P-R-T Axes : 69 28 18 degrees QTcB Int : 432 ms Normal sinus rhythm Nonspecific ST abnormality Abnormal ECG When compared with ECG of 06-Dec-2024 23:42, MANUAL COMPARISON REQUIRED DATA IS UNCONFIRMED Confirmed by TERENCE ALVARADO, ANDREA ([id number]), editorial director IRISH AZUL ([id number]) on 12/09/2024 8:44:03 AM Referred By: SHAKIR Confirmed By: ANDREA PRATT MD
[2024-12-07 06:00] VITALS: BMI 31.4
[2024-12-07 06:14] LABS: Cholesterol 189 mg/dL (<=200); Low Density Lipoprotein Calc. 88 mg/dL; Triglycerides 47 mg/dL; Very Low Density Lipoprotein 9 mg/dL (5-40); cholesterol:hdl ratio screen 2.06
[2024-12-07 06:18] LABS: AST(SGOT) 26 U/L (<=31); Alanine Aminotransfer ALT/SGPT 31 U/L (<=34); Albumin, Serum 4.2 g/dL (3.5-5.0); Alkaline Phosphatase 72 U/L (35-104); Anion Gap 14 (5-15); BUN 14 mg/dL (4-19); BUN/Creat Ratio 20.0 RATIO (10-20); Calcium,Total 10.2 mg/dL (7.6-11.0); Carbon Dioxide 22.2 mmol/L (21.0-32.0); Chloride 106 mmol/L (98-108); Estimated Creatinine Clearance 106.06 ml/min (50-250); Globulin 3.2 g/dL (2.2-4.2); Glucose 102 mg/dL (70-99); Potassium 3.5 mmol/L (3.3-5.1)
[2024-12-07 07:00] VITALS: PULSE 63
[2024-12-07 07:45] VITALS: BP 160/83; PULSE 64; RESP 16; TEMP 36.4; O2SAT 100
[2024-12-07 11:00] VITALS: PULSE 63
--- NOTE | 2024-12-07 13:13 | STRESSREP_ITS ---
Stress Test Report Date: [12/07/24] Procedure: Pharmacologic stress nuclear imaging study Indications: [chest pain] Consent: Per the patient Procedure: The patient underwent pharmacologic (Regadenoson) evaluation with a peak heart rate of [90] beats per minute ([54]%predicted maximal heart rate) and a peak blood pressure of [154/94] mmHg. The baseline ECG demonstrated [normal sinus rhythm]. EKG during lexiscan infusion revealed [no significant ischemic changes]. EKG post infusion revealed no significant ischemic changes [There were no cardiac dysrhythmias pretest, during pharmacologic infusion, or recovery]. [There was no complaint of chest discomfort during pharmacologic infusion or recovery]. The examination was discontinued secondary to completion of protocol. Impression: 1. Lexiscan stress test test is negative for Lexiscan infusion induced EKG changes of ischemia. 2. Lexiscan stress test test is negative for Lexiscan infusion induced chest pain. 3. Results of the nuclear portion of the test is as below Myocardial perfusion imaging study: Technique: The patient was injected with 13.1 millicuries of technetium 99m Cardiolite and subsequently rest SPECT Cardiolite nuclear imaging was obtained in the horizontal long, vertical long, and short axis views. The patient underwent pharmacologic [Regadenoson 0.4mg] evaluation. Please see above for details. The patient was injected with 41.8 millicuries of technetium 99m Cardiolite and subsequently stress SPECT Cardiolite nuclear imaging was obtained in the hor izontal long, vertical long, and short axis views. A gated Cardiolite study at peak stress was obtained. Interpretation: Rest and stress SPECT Cardiolite nuclear imaging status post realignment, normalization, and attenuation correction demonstrate no evidence of significant ischemia or infarction. Gated images reveal no significant regional wall motion abnormalities. The reported LVEF is greater than 70%. Impression: 1. There is no evidence of significant ischemia or infarction. 2. Estimated ejection fraction is greater than 70%. This note was generated with [employer] software. It may contain incorrect words, spelling, and punctuation that were not noted in checking the note before signing.
--- NOTE | 2024-12-07 13:47 | CASEMGMT ---
Received CM c/s for f/u for breast mass. Spoke with pt nurse, she is not aware if pt is aware of this mass. Spoke with hospitalist, pt is aware. AILYN MARKHAM into pt room, pt sitting up in bed in no distress. Pt states that she has followed up with Dr. Ramon in the past and would do so again for this mass. She is agreeable to AILYN MARKHAM placing his name and phone number on dc instructions. Pt reports she is indep at home. She denies any homegoing needs.
--- NOTE | 2024-12-07 14:40 | DCINST_ITS ---
Discharge Instructions DC O2, CPAP, BIPAP needs Home O2 Discharge instructions: No Dressing / Incision Discharge Activity: - (Increase activity as tolerated) Follow Up Care Test Results: Test results from this visit will be discussed in further detail at your follow- up appointment, if applicable. Discharge Plan Admission Admit Date/Time: 12/06/24 23:12 Primary Reason for Your Visit: Chest tightness Attending Provider: Melissa Mcneal Primary Care Provider: Kristina López Consulting Providers: Mera Jolly Instructions Patient Instructions: ED Fall Prevention Additional Instructions / Restrictions: DISCHARGE INSTRUCTIONS PLEASE READ *Please take this with you to your next doctors appointment* - Please call your primary care physician on Monday to schedule a close follow- up appointment for further investigation and workup for the spot seen on your right breast, it is important that you do so -For any concerning signs or symptoms please call 911 or proceed to the nearest emergency department Discharge Orders/Prescriptions Prescriptions: Continued amlodipine 5 mg tablet 5 mg PO QDAY hydrochlorothiazide 25 mg tablet 25 mg PO DAILY lisinopril 40 mg tablet 40 mg PO DAILY [place]-3 magnesium BID Referrals / Follow Up: Kristina López PA [Primary Care Provider, Medical] - Within 1 Week Disposition Disposition (needs filled in before D/C Order can be placed): Home, Self Care
--- NOTE | 2024-12-07 14:45 | PCM.DC.SUM ---
Providers Date of Admission: 12/06/24 Date of Discharge: 12/07/24 Primary Care Physician: DAYSI Caldwell Reason For Visit: CHEST PAIN Diagnosis Discharge Diagnosis (1) Non-cardiac chest pain: Status: Acute Code(s): R07.89 - Other chest pain (2) Hypertension: Status: Chronic Code(s): I10 - Essential (primary) hypertension (3) Breast mass, right: Status: Acute Code(s): N63.10 - Unspecified lump in the right breast, unspecified quadrant Plan #Non cardiac chest pain #HTN #Right breast mass Medications at Discharge Home Medications amlodipine 5 mg tablet 5 mg PO QDAY 07/04/24 [place]-3 12/06/24 hydrochlorothiazide 25 mg tablet 25 mg PO DAILY 12/06/24 lisinopril 40 mg tablet 40 mg PO DAILY 12/06/24 magnesium BID 12/06/24 Hospital Course Procedures - (Stress test) Summary of Care Provided Minutes Spent on Discharge: 26 Hospital Course: Per HPI: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 Patient notes that she has been having ongoing left neck discomfort worse with certain movements for the last several weeks. She notes the chest heaviness is primarily in the left upper chest rating it 3-4 out of severity and does have some radiation up to the left neck but more like a shooting pain. She notes that currently the right shoulder pain is completely resolved. Workup in the outside emergency room included afebrile, BP 163/87, respiratory rate 21, heart rate 67, 96% oxygenation, initial troponin 10.2 high-sensitivity, CMP with sodium 137, potassium 3.1, chloride 103, CO2 31.6, glucose 97, BUN/creatinine 21/0.87, GFR greater than 60, total bilirubin mildly elevated 1.5, AST/ALT 22/35, alk phos 73, D-dimer 387, CBC with WBC 6.4, hematin 14.2, MCV 89, platelet 228 without marked shift, CTA chest with no evidence of pulmonary embolism, noted right breast mass measuring 1.9 x 1.3 x 2.0 cm, follow-up repeat delta troponin 10.1, EKG with sinus rhythm with no acute evidence of ischemia. 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 INTERVAL HISTORY: Patient evaluated at bedside, she reports that she has been having problems with some neck pain and has been going to a chiropractor over the past month or so and has had some improvement in that neck pain, given the overall improvement but continued pain on the left side of the neck to left upper chest she was concerned and therefore presented for evaluation. Still reports some of the upper left chest discomfort that is almost squeezing in nature and then will go up to the base of the skull on the left side, had a little bit of pain in the shoulder on the right side yesterday that has completely resolved. Not presently complaining of any shortness of breath or nausea, no other new or acute complaints. Patient with echocardiogram without any significant abnormalities, stress test negative and all patient's troponins were negative. Discussed results, patient to be discharged instructed follow-up with a primary care physician, specifically discussed the lesion seen on the right breast and patient is instructed to call Monday to schedule an appointment with her physician so this can be further evaluated/worked up. Patient verbalized understanding. Discharge instructions as follows: - Please call your primary care physician on Monday to schedule a close follow-up appointment for further investigation and workup for the spot seen on your right breast, it is important that you do so -For any concerning signs or symptoms please call 911 or proceed to the nearest emergency department Physical Exam Narrative General: Alert, oriented, no apparent distress HEENT: Atraumatic, normocephalic Eyes: Anicteric, normal conjunctiva, extraocular movements grossly intact Neck: Supple Respiratory: Clear to auscultation bilaterally, normal respiratory effort Cardiovascular: Regular rate and rhythm GI: Soft, nontender, nondistended Extremities: No edema Musculoskeletal: Moving all extremities Neuro: No overt focal neurological deficits Skin: No rashes appreciated Psych: Cooperative Weight / BMI Weight Weight: 94.2 kg Body Mass Index (BMI) 31.4 ABG / Lab / Microbiology Data 12/07/24 04:08 12/07/24 04:08 Laboratory: Laboratory Results - last 24 hr 12/07/24 00:06: Magnesium 2.2, Troponin T High Sens 7 12/07/24 02:14: Troponin T Hi Sens 2 Hr 7 12/07/24 04:08: WBC 5.4, RBC 4.54, Hgb 14.0, Hct 41.1, MCV 90.5, MCH 30.8, MCHC 34.1, RDW Std Deviation 39.6, RDW Coeff of Rohit 11.9, Plt Count 230, MPV 9.8, Immature Gran % (Auto) 0.200, Neut % (Auto) 57.2, Lymph % (Auto) 30.7, [place] % (Auto) 8.7, Eos % (Auto) 2.8, Baso % (Auto) 0.4, Absolute Neuts (auto) 3.1, Absolute Lymphs (auto) 1.66, Nucleated RBC % 0, Sodium 142, Potassium 3.5, Chloride 106, Carbon Dioxide 22.2, Anion Gap 14, BUN 14, Creatinine 0.72, Estim Creat Clear Calc 106.06, Est GFR (MDRD) Non-Af 99, BUN/Creatinine Ratio 20.0, Glucose 102 H, Calcium 10.2, Total Bilirubin 1.89 H, AST 26, ALT 31, Alkaline Phosphatase 72, Troponin T Hi Sens 4Hr 6, Total Protein 7.4, Albumin 4.2, Globulin 3.2, Albumin/Globulin Ratio 1.3, Triglycerides 47, Cholesterol 189, LDL Cholesterol, Calc 88, VLDL Cholesterol 9, HDL Cholesterol 92, Cholesterol/HDL Ratio 2.06, TSH 0.355, Free T4 1.30 Radiography Diagnostic Testing: Radiology Impression Echocardiogram 12/06/24 20:44 Interpretation Summary The estimated ejection fraction is 65 %. No evidence for diastolic dysfunction. Trivial mitral valve insufficiency. Trivial aortic valve insufficiency. Ordering Physician: Mera Jolly Referring Physician: KRISTINA POLLARD Performed By: Nia Denton RCS D/C Instructions DC O2, CPAP, BIPAP Needs Home O2 Discharge instructions: No Meaningful Use Info Meaningful Use Meaningful Use Diagnoses (Choose all that apply): None applicable Discharge Plan Admission Admit Date/Time: 12/06/24 23:12 Primary Reason for Your Visit: Chest tightness Attending Provider: Melissa Mcneal Primary Care Provider: Kristina Pollard Consulting Providers: Mera Jolly Instructions Patient Instructions: ED Fall Prevention Additional Instructions / Restrictions: DISCHARGE INSTRUCTIONS PLEASE READ *Please take this with you to your next doctors appointment* - Please call your primary care physician on Monday to schedule a close follow-up appointment for further investigation and workup for the spot seen on your right breast, it is important that you do so -For any concerning signs or symptoms please call 911 or proceed to the nearest emergency department Discharge Orders/Prescriptions Prescriptions: Continued amlodipine 5 mg tablet 5 mg PO QDAY hydrochlorothiazide 25 mg tablet 25 mg PO DAILY lisinopril 40 mg tablet 40 mg PO DAILY [place]-3 magnesium BID Referrals / Follow Up: Kristina Pollard PA [Primary Care Provider, Medical] - Within 1 Week Disposition Disposition (needs filled in before D/C Order can be placed): Home, Self Care Charges/Coding Visit Charges Inpatient E&M: 44111 Disch Hosp
[2024-12-07 16:25] VITALS: BP 148/79; PULSE 64; RESP 16; TEMP 37; O2SAT 98
== END 2024-12-07 17:17 | disposition home or self-care (01) ==
PROVIDERS: Admitting Provider Family Medicine; PCP Physician Assistant; Visit Provider Internal Medicine
DX: R07.89 Other chest pain (principal); N63.10 Unspecified lump in the right breast, unspecified quadrant; R06.09 Other forms of dyspnea; R11.0 Nausea; I10 Essential (primary) hypertension; I08.3 Combined rheumatic disorders of mitral, aortic and tricuspid valves; R94.31 Abnormal electrocardiogram [ECG] [EKG]; E04.1 Nontoxic single thyroid nodule; Z79.899 Other long term (current) drug therapy
CPT/HCPCS: 36415; 78452; 80053; 80061; 83735; 84439; 84443; 84484; 85025; 93005; 93017; 93306; 96372; 99221; A9500; A4216; G0378; J2785